=== PATIENT | female | born 1980 | race Caucasian/White ===

== ENCOUNTER 2018-01-21 16:55 | Inpatient (IN) | payer OTHER ==
[2018-01-21] MEDS ORDERED: SODIUM CHLORIDE 0.9% 1,000 ML IV STA (17:24)
[2018-01-21] MEDS ORDERED: SODIUM CHLORIDE 0.9% 500 ML 500 ML IV STA (17:24)
[2018-01-21] MEDS ORDERED: KETOROLAC 30 MG/ML 1 ML VIAL IVP STA (17:25)
[2018-01-21] MEDS ORDERED: IPRATROPIUM-ALBUTEROL 3 ML NEB INHALATION STA (17:26)
--- NOTE | 2018-01-21 17:28 | ED ---
Fever HPI - General Chief Complaint: Fever Stated Complaint: Fever Time Seen by Provider: 01/21/18 17:07 Source: patient Mode of arrival: ambulatory Limitations: no limitations - History of Present Illness Initial Comments: Patient is a 37-year-old female presenting for fever. Patient states that she is otherwise healthy but started having a cough on and went to an urgent care today where she was given antibiotics and steroids and told that she had the pneumonia. He also told her to come to the hospital for fever continued to be elevated. She admits to some shortness of breath and some difficulty breathing but no chest pain. She states that her temperature is also been as high as 103F. She denies any abdominal pain, nausea/vomiting/ diarrhea, urinary symptoms or recent travels. - Related Data Allergies Allergy/AdvReac Type Severity Reaction Status Date / Time No Known Allergies Allergy Verified 01/21/18 17:00 Review of Systems ROS Statement: Those systems with pertinent positive or pertinent negative responses have been documented in the HPI. Constitutional: Positive for chills, fatigue and fever. HENT: Negative for congestion. Respiratory: Negative for chest tightness, and wheezing. Positive for cough and shortness of breath Cardiovascular: Negative for chest pain and palpitations. Gastrointestinal: Negative for abdominal pain. Negative for abdominal distention , diarrhea, nausea and vomiting. Genitourinary: Negative for dysuria. Musculoskeletal: Negative for back pain, neck pain and neck stiffness. Skin: Negative for color change. Neurological: Negative for dizziness, speech difficulty, weakness and light- headedness. Psychiatric/Behavioral: Negative for agitation and confusion. Negative for anxiety ROS Other: All systems not noted in ROS Statement are negative. Past Medical History Past Medical History: Pneumonia Additional Past Medical History / Comment(s): TB History of Any Multi-Drug Resistant Organisms: None Reported Past Surgical History: Appendectomy, Section Past Psychological History: No Psychological Hx Reported Smoking Status: Never smoker Past Alcohol Use History: None Reported Past Drug Use History: None Reported General Exam - General Exam Comments Initial Comments: Constitutional: Pt is oriented to person, place, and time. Pt appears well- developed and well-nourished. No distress. HENT: Head: Normocephalic and atraumatic. Eyes: EOM are normal. Neck: Normal range of motion. Neck supple. Cardiovascular: Tachycardia present, regular rhythm, S1 normal, S2 normal and normal heart sounds. Exam reveals no gallop and no friction rub. No murmur heard. Pulmonary/Chest: Effort normal and breath sounds normal. No tachypnea and no bradypnea. No respiratory distress. No wheezes or rales noted. Abdominal: Soft. Bowel sounds are normal. Pt exhibits no shifting dullness, no distension, no pulsatile liver, no fluid wave, no abdominal bruit and no ascites. There is no tenderness. There is no rigidity, no rebound, no guarding, no tenderness at McBurney's point and negative Joiner's sign. Musculoskeletal: Normal range of motion. Neurological: Pt is alert and oriented to person, place, and time. No cranial nerve deficit. Skin: Skin is warm and dry. No rash noted. Pt is not diaphoretic. No erythema. No pallor. Psychiatric: Pt has a normal mood and affect. Pt behavior is normal. Thought content normal. Limitations: no limitations Course Vital Signs 01/21/18 01/21/18 01/21/18 16:57 18:01 18:06 Temperature 100.3 F H Pulse Rate 131 H 117 H 111 H Respiratory 24 Rate Blood Pressure 134/80 O2 Sat by Pulse 95 Oximetry Medical Decision Making - Medical Decision Making Laboratory studies showed that there is no significant leukocytosis or elevations and lactic acid. Chest x-ray showed left lower lobe infiltrate. Patient was to be discharged home considering laboratory studies, however, after 2 L normal saline she continued to remain tachycardic around 120. Because of this, it was felt that patient should remain in observation for continued hydration and monitoring as well as treatment with azithromycin and Rocephin which is ordered here in the emergency department. Pulmonary embolism was considered but it is felt to be unlikely as the patient's history and exam are consistent with infectious etiology. Explained all labs and diagnostic test results and that we will admit patient to hospital. Pt is agreeable to plan and case has been discussed with Dr. Sanchez and they agree to accept the pt. - Lab Data Result diagrams: 01/21/18 17:28 01/21/18 17:28 Lab Results 01/21/18 01/21/18 01/21/18 Range/Units 17:28 17:28 17:28 WBC 10.0 (3.8-10.6) k/uL RBC 4.56 (3.80-5.40) m/uL Hgb 12.4 (11.4-16.0) gm/dL Hct 37.2 (34.0-46.0) % MCV 81.6 (80.0-100.0) fL MCH 27.2 (25.0-35.0) pg MCHC 33.3 (31.0-37.0) g/dL RDW 14.3 (11.5-15.5) % Plt Count 274 (150-450) k/uL Neutrophils % 88 % Lymphocytes % 6 % Monocytes % 4 % Eosinophils % 1 % Basophils % 0 % Neutrophils # 8.8 H (1.3-7.7) k/uL Lymphocytes # 0.6 L (1.0-4.8) k/uL Monocytes # 0.4 (0-1.0) k/uL Eosinophils # 0.1 (0-0.7) k/uL Basophils # 0.0 (0-0.2) k/uL Sodium 136 L (137-145) mmol/L Potassium 4.0 (3.5-5.1) mmol/L Chloride 104 (98-107) mmol/L Carbon Dioxide 21 L (22-30) mmol/L Anion Gap 11 mmol/L BUN 8 (7-17) mg/dL Creatinine 0.54 (0.52-1.04) mg/dL Est GFR (CKD-EPI)AfAm >90 (>60 ml/min/1.73 sqM) Est GFR (CKD-EPI)NonAf >90 (>60 ml/min/1.73 sqM) Glucose 114 H (74-99) mg/dL Plasma Lactic Acid Claude (0.7-2.0) mmol/L Calcium 9.4 (8.4-10.2) mg/dL Total Bilirubin 0.5 (0.2-1.3) mg/dL AST 26 (14-36) U/L ALT 32 (9-52) U/L Alkaline Phosphatase 82 (38-126) U/L Total Protein 7.3 (6.3-8.2) g/dL Albumin 4.0 (3.5-5.0) g/dL Urine Color Urine Appearance (Clear) Urine pH (5.0-8.0) Ur Specific [place] (1.001-1.035) Urine Protein (Negative) Urine Glucose (UA) (Negative) Urine Ketones (Negative) Urine Blood (Negative) Urine Nitrite (Negative) Urine Bilirubin (Negative) Urine Urobilinogen (<2.0) mg/dL Ur Leukocyte Esterase (Negative) Urine RBC (0-5) /hpf Ur Squamous Epith Cells (0-4) /hpf Calcium Oxalate Crystal (None) /hpf Urine HCG, Qual (Not Detectd) Influenza Type A RNA Not Detected (Not Detectd) Influenza Type B (PCR) Not Detected (Not Detectd) 01/21/18 01/21/18 01/21/18 Range/Units 17:28 17:28 17:28 WBC (3.8-10.6) k/uL RBC (3.80-5.40) m/uL Hgb (11.4-16.0) gm/dL Hct (34.0-46.0) % MCV (80.0-100.0) fL MCH (25.0-35.0) pg MCHC (31.0-37.0) g/dL RDW (11.5-15.5) % Plt Count (150-450) k/uL Neutrophils % % Lymphocytes % % Monocytes % % Eosinophils % % Basophils % % Neutrophils # (1.3-7.7) k/uL Lymphocytes # (1.0-4.8) k/uL Monocytes # (0-1.0) k/uL Eosinophils # (0-0.7) k/uL Basophils # (0-0.2) k/uL Sodium (137-145) mmol/L Potassium (3.5-5.1) mmol/L Chloride (98-107) mmol/L Carbon Dioxide (22-30) mmol/L Anion Gap mmol/L BUN (7-17) mg/dL Creatinine (0.52-1.04) mg/dL Est GFR (CKD-EPI)AfAm (>60 ml/min/1.73 sqM) Est GFR (CKD-EPI)NonAf (>60 ml/min/1.73 sqM) Glucose (74-99) mg/dL Plasma Lactic Acid Claude 0.8 (0.7-2.0) mmol/L Calcium (8.4-10.2) mg/dL Total Bilirubin (0.2-1.3) mg/dL AST (14-36) U/L ALT (9-52) U/L Alkaline Phosphatase (38-126) U/L Total Protein (6.3-8.2) g/dL Albumin (3.5-5.0) g/dL Urine Color Colorless Urine Appearance Clear (Clear) Urine pH 5.5 (5.0-8.0) Ur Specific [place] 1.002 (1.001-1.035) Urine Protein Negative (Negative) Urine Glucose (UA) Negative (Negative) Urine Ketones 1+ H (Negative) Urine Blood Trace H (Negative) Urine Nitrite Negative (Negative) Urine Bilirubin Negative (Negative) Urine Urobilinogen <2.0 (<2.0) mg/dL Ur Leukocyte Esterase Negative (Negative) Urine RBC 1 (0-5) /hpf Ur Squamous Epith Cells <1 (0-4) /hpf Calcium Oxalate Crystal Rare H (None) /hpf Urine HCG, Qual Not Detected (Not Detectd) Influenza Type A RNA (Not Detectd) Influenza Type B (PCR) (Not Detectd) Disposition Clinical Impression: Community acquired pneumonia Disposition: ADMITTED IP TO THIS [facility] Condition: Fair Referrals: Simin Lane MD [Primary Care Provider] - 1-2 days Decision to Admit Reason: Admit from EC Decision Date: 01/21/18 Decision Time: 19:36
[2018-01-21 17:45] LABS: Basophils % (A) 0 %; Eosinophils # (A) 0.1 k/uL (0-0.7); Eosinophils % (A) 1 %; HCT 37.2 % (34.0-46.0); HGB 12.4 gm/dL (11.4-16.0); Lymphocytes # (A) 0.6 k/uL (1.0-4.8); Lymphocytes % (A) 6 %; MCH 27.2 pg (25.0-35.0); MCHC 33.3 g/dL (31.0-37.0); MCV 81.6 fL (80.0-100.0); Mean Platelet Volume 7.3; Monocytes # (A) 0.4 k/uL (0-1.0); Monocytes % (A) 4 %; Neutrophils # (A) 8.8 k/uL (1.3-7.7); Neutrophils % (A) 88 %; Platelet Count 274 k/uL (150-450); RBC 4.56 m/uL (3.80-5.40); RDW 14.3 % (11.5-15.5)
[2018-01-21 17:56] LABS: ALT 32 U/L (9-52); AST 26 U/L (14-36); Alkaline Phosphatase 82 U/L (38-126); Anion Gap 11 mmol/L; Blood Urea Nitrogen 8 mg/dL (7-17); Calcium 9.4 mg/dL (8.4-10.2); Carbon Dioxide 21 mmol/L (22-30); Chloride 104 mmol/L (98-107); Glucose 114 mg/dL (74-99); Sodium 136 mmol/L (137-145); Total Bilirubin 0.5 mg/dL (0.2-1.3); Total Protein 7.3 g/dL (6.3-8.2)
[2018-01-21 18:20] LABS: Appearance,Urine Clear (Clear); Bilirubin,Urine Negative (Negative); Blood,Urine Trace (Negative); Calcium Oxalate Crystals,Urine Rare /hpf; Color,Urine Colorless; Glucose,Urine (UA) Negative (Negative); Ketones,Urine 1+ (Negative); Leukocyte Esterase,Urine Negative (Negative); Nitrite,Urine Negative (Negative); PH, Urine 5.5 (5.0-8.0); Protein,Urine Negative (Negative); RBC,Urine 1 /hpf (0-5); Specific Gravity,Urine 1.002 (1.001-1.035); Squamous Epithelial Cell,Urine <1 /hpf (0-4); Urobilinogen,Urine <2.0 mg/dL (<2.0)
--- NOTE | 2018-01-21 18:53 | XR ---
EXAMINATION TYPE: XR chest 2V DATE OF EXAM: 01/21/2018 COMPARISON: NONE HISTORY: Fever, reported history of recent pneumonia TECHNIQUE: Frontal and lateral views of the chest are obtained. FINDINGS: Airspace disease present in left lower lung. The left hemidiaphragm is not well-visualized but may represent small left pleural effusion. Right lung is clear. No pneumothorax. The cardiomedia stinal silhouette is within normal limits. Osseous structures are intact. IMPRESSION: 1. Left lower lung airspace disease which may represent pneumonia. Serial radiographs are recommended to ensure resolution. 2. Left hemidiaphragm is not well visualized but may represent small left pleural effusion.
[2018-01-21] MEDS ORDERED: AZITHROMYCIN 500 MG in SODIUM CHLORIDE 0.9% 250 ML IVPB STA (19:24)
[2018-01-21] MEDS ORDERED: NALOXONE 0.4 MG/ML 1 ML VIAL IV PRN (19:31)
[2018-01-21] MEDS ORDERED: LACTATED RINGERS 1,000 ML IV STA (19:31)
[2018-01-21 21:05] VITALS: BMI 34.3
[2018-01-21] MEDS: IBUPROFEN 400 MG TAB PO PRN (21:15)
--- NOTE | 2018-01-21 21:29 | P.HPIM ---
History of Present Illness H&P Date: 01/21/18 Chief Complaint: Cough and fever of 3 days' duration 37-year-old female with no significant past medical history except for depression. Patient presented to the hospital with a 3 day history of coughing productive of greenish brownish sputum, associated with pleuritic chest pain centrally, and fevers of 103. She's been taking Tylenol and Motrin with not much benefit. Patient is reporting difficulties with taking deep breaths today due to pleuritic chest pain. So she went to an urgent care where she was given a shot of steroid and antibiotic and was told to go to the ER if fevers persist. Patient denies any recent traveling or any sick contacts except for her kids who all got runny nose. Patient denies any recent hospitalization or being bedridden or any recent surgeries or any diagnosis of active cancer. Patient denies any calf muscle tenderness. Patient denies any nausea vomiting denies any abdominal pain changes in her hearing or vision denies any dizziness or lightheadedness denies any palpitations. Eyes any focal neurologic deficits. Patient denies taking any recent antibiotics except for UTI she took Macrobid over a month ago In the ED patient was found tachycardic chest x-ray showed left lower lobe lung disease, the initial plan was to discharge her with oral antibiotic however due to persistent tachycardia she was admitted for observation 24 hours Review of Systems Pertinent positives as noted in HPI. All other systems were reviewed and are negative Past Medical History Past Medical History: Pneumonia Additional Past Medical History / Comment(s): TB at age [age], migraines History of Any Multi-Drug Resistant Organisms: None Reported Past Surgical History: Appendectomy, Section Past Psychological History: Anxiety, Depression Additional Psychological History / Comment(s): pts states medication she takes keeps symtoms manageable. Smoking Status: Never smoker Past Alcohol Use History: None Reported Past Drug Use History: None Reported - Past Family History Mother Family Medical History: No Reported History Father Family Medical History: No Reported History Additional Family Medical History / Comment(s): migraines Medications and Allergies Allergies Allergy/AdvReac Type Severity Reaction Status Date / Time No Known Allergies Allergy Verified 01/21/18 17:00 Physical Exam Vitals: Vital Signs Temp Pulse Pulse Resp BP BP Pulse Ox 01/21/18 20:48 99.3 F 119 H 20 120/65 98 01/21/18 20:17 98.7 F 118 H 20 118/70 98 01/21/18 19:51 98.9 F 112 H 18 116/65 94 L 01/21/18 19:00 112 H 20 118/87 95 01/21/18 18:06 111 H 01/21/18 18:01 117 H 01/21/18 18:00 118 H 18 138/78 98 01/21/18 17:32 124 H 20 131/69 92 L 01/21/18 16:57 100.3 F H 131 H 24 134/80 95 Intake and Output 01/21/18 01/21/18 01/21/18 06:59 14:59 22:59 Other: Weight 90.718 kg Constitutional: No acute distress, conversant, pleasant Eyes: Anicteric sclerae, moist conjunctiva, no lid-lag Pupils equal round reactive to light ENMT: NC/AT Oropharynx clear, no erythema, or exudates Neck: Supple, FROM, no masses, or JVD No carotid bruits No thyromegaly Lungs: Decreased breath sounds at lung bases left worse than right, no wheezing rhonchi or rales otherwise Clear to percussion Normal respiratory effort, no accessory muscle use Cardiovascular: Heart tachycardia, regular, No murmurs, gallops, or rubs No peripheral edema Abdominal: Soft Nontender, no guarding, rebound or rigidity Abdomen moving with respiration Normoactive bowel sounds No hepatomegaly, No splenomegaly No palpable mass No abdominal wall hernia noted Skin: Normal temperature, tone, texture, turgor No induration No subcutaneous nodules No rash, lesions No ulcers Extremities: No digital cyanosis No clubbing Pedal pulses intact and symmetrical Radial pulses intact and symmetrical No calf tenderness Psychiatric: Alert and oriented to person, place and time Appropriate affect fair judgment Neuro Muscles Strength 5/5 in all 4 extremities Sensation to light touch grossly present throughout Cranial nerves II-XII grossly intact No focal sensory deficits Lymphatics: no palpable cervical or supraclavicular , or inguinal lymph nodes Results CBC & Chem 7: 01/21/18 17:28 01/21/18 17:28 Labs: Abnormal Lab Results - Last 24 Hours (Table) 01/21/18 01/21/18 01/21/18 Range/Units 17:28 17:28 17:28 Neutrophils # 8.8 H (1.3-7.7) k/uL Lymphocytes # 0.6 L (1.0-4.8) k/uL Sodium 136 L (137-145) mmol/L Carbon Dioxide 21 L (22-30) mmol/L Glucose 114 H (74-99) mg/dL Urine Ketones 1+ H (Negative) Urine Blood Trace H (Negative) Calcium Oxalate Crystal Rare H (None) /hpf Thrombosis Risk Factor Assmnt - Choose All That Apply Each Factor Represents 1 point: Obesity (BMI >25) Other Risk Factors: No Other congenital or acquired thrombophilia - If yes, enter type in comment: No Thrombosis Risk Factor Assessment Total Risk Factor Score: 1 Thrombosis Risk Factor Assessment Level: Low Risk Assessment and Plan Assessment: 37 year old female with no significant past medical history, admitted under observation for monitoring of persistent tachycardia. patient was diagnosed with CAP in the ED and started on ABx. She presented with 3 day history of coughing, fever, and pleuritic chest pain, CXR showed LLL disease. Plan: community acquired pneumonia rocephine and azithromycin IVF hydration symptomatic control of coughing and pleuritic chest pain Tachycardia check EKG, most likely sinus tachy as physiologic response to pneumonia further workup and recommendations pending revision of EKG currently asymptomatic IVF hydration History of depression, resume home medications Cymbalta, Xanax, Lamictal Obesity counseled regarding weight loss and life style modification DVT ppx heparin sc Surrogate decision-maker: Patient Toribio CODE STATUS:*Full code Discussed with: Patient, ER, RN Anticipated discharge: <[address]: *Home A total of 55 minutes was spent on the care of this complex patient more than 50 % of the time was spent in counseling and care coordination.
[2018-01-21] MEDS: SODIUM CHLORIDE 0.9% 1,000 ML IV SCH (22:09)
[2018-01-21] MEDS: HEPARIN SODIUM,PORCINE 5,000 UNIT/ML 1 ML VIAL SQ SCH (22:12)
[2018-01-22] MEDS: ACETAMINOPHEN TAB 325 MG TAB PO PRN ×4 (02:01→22:30)
[2018-01-22] MEDS: IBUPROFEN 400 MG TAB PO PRN ×3 (03:18→18:27)
[2018-01-22] MEDS: SODIUM CHLORIDE 0.9% 1,000 ML IV SCH ×2 (07:14→14:30)
[2018-01-22] MEDS: lamoTRIgine 100 MG TAB PO SCH (08:47)
[2018-01-22] MEDS: HEPARIN SODIUM,PORCINE 5,000 UNIT/ML 1 ML VIAL SQ SCH ×3 (08:47→23:59)
[2018-01-22] MEDS: DULoxetine HCL 20 MG CAPSULE.DR PO SCH (08:48)
[2018-01-22] MEDS ORDERED: DULoxetine HCL 20 MG CAPSULE.DR PO SCH (09:00)
[2018-01-22] MEDS: ALPRAZolam 0.5 MG TAB PO PRN ×2 (10:59→21:30)
[2018-01-22] MEDS: MORPHINE SULFATE 2 MG/ML SYRINGE IVP PRN ×3 (14:20→22:31)
--- NOTE | 2018-01-22 14:27 | P.PN ---
Subjective Progress Note Date: 01/22/18 Principal diagnosis: Pneumonia Patient was seen and examined. No acute events overnight. Patient continues to complain of cough productive of green sputum. Patient complains of intense pleuritic chest pain as well with her cough. She also complains of bitemporal headache, pounding in nature. Requesting pain relief. Also complains of fever and chills. Objective - Vital Signs Vital signs: Vital Signs Temp 101.2 F H 01/22/18 11:00 Pulse 124 H 01/22/18 11:00 Resp 20 01/22/18 11:00 BP 138/73 01/22/18 11:00 Pulse Ox 100 01/22/18 11:00 Intake & Output 01/21/18 01/22/18 01/22/18 18:59 06:59 18:59 Weight 90.718 kg 90.718 kg Other: # Voids 1 2 - Exam General: [non toxic], [no distress], [appears at stated age] Derm: [warm], [dry] Head: [atraumatic], [normocephalic], [symmetric] Eyes: [EOMI], [no lid lag], [anicteric sclera] Mouth: [no lip lesion], [mucus membranes moist] Cardiovascular: [S1S2 reg], [tachycardic], [positive DP pulse bilateral] Lungs: [CTA bilateral], [no rhonchi, no rales] , [no accessory muscle use] Abdominal: [soft], [ nontender to palpation], [no guarding], [no appreciable organomegaly] Ext: [no gross muscle atrophy], [no edema], [no contractures] Neuro: [no focal neuro deficits] Psych: [Alert], [oriented], [appropriate affect] - Labs CBC & Chem 7: 01/21/18 17:28 01/21/18 17:28 Labs: Abnormal Lab Results - Last 24 Hours (Table) 01/21/18 01/21/18 01/21/18 Range/Units 17:28 17:28 17:28 Neutrophils # 8.8 H (1.3-7.7) k/uL Lymphocytes # 0.6 L (1.0-4.8) k/uL Sodium 136 L (137-145) mmol/L Carbon Dioxide 21 L (22-30) mmol/L Glucose 114 H (74-99) mg/dL Urine Ketones 1+ H (Negative) Urine Blood Trace H (Negative) Calcium Oxalate Crystal Rare H (None) /hpf Assessment and Plan Assessment: Assessment and Plan 1. Pneumonia: Community acquired. Patient is febrile with Tmax 102.7 (2AM) and 101.2 (11AM) with no leukocytosis. Patient is tachypnic and tachycardic. Influenza negative. CXR shows PNA in the LLL. Continue Ceftriaxone 1g IV QD and Zithromax 250 mg PO QD. Will add Mucinex 1200 mg PO BID. DuoNeb Continue NS at 140 cc/h. O2 per NC to maintain O2 sat > 92%. FU BCx and Sputum Cx 2. Chest pain: Pleuritic likely related to PNA with no concerns for ACS. Pain management with Tylenol, Ibuprofen and Morphine IV PRN. 3. Tachycardia: HR in the 120s. Sinus on physical exam. Likely related to pain and pneumonia. Continue IVF. Continue adequate pain management. Continue IV Abx. FU EKG 4. Depression: Stable. Continue Xanax 0.5 mg PO BID PRN for anxiety, Cymbalta 60 mg PO QD, Lamictal 100 mg PO QD. 5. DVT Prophylaxis: Heparin 5000 units SUBCUT TID. Patient is not feeling well at this time with a constellation of symptoms (LOPEZ, pleuritic chest pain, cough and congestion). Patient continues to be febrile Tmax 101.2 around 11 AM. Continue present management. Likely discharge in 1-2 days.
[2018-01-22] MEDS: BENZONATATE 100 MG CAP PO SCH ×2 (15:09→21:33)
[2018-01-22] MEDS ORDERED: AZITHROMYCIN 250 MG TAB PO SCH (19:00)
[2018-01-22] MEDS: guaiFENesin 600 MG TABLET.ER PO SCH (21:33)
[2018-01-23] MEDS: IBUPROFEN 400 MG TAB PO PRN ×2 (01:33→07:54)
[2018-01-23] MEDS: SODIUM CHLORIDE 0.9% 1,000 ML IV SCH (01:35)
[2018-01-23] MEDS: MORPHINE SULFATE 2 MG/ML SYRINGE IVP PRN ×2 (02:29→06:28)
[2018-01-23] MEDS: ACETAMINOPHEN TAB 325 MG TAB PO PRN (04:37)
[2018-01-23] MEDS: BENZONATATE 100 MG CAP PO SCH (07:50)
[2018-01-23] MEDS: HEPARIN SODIUM,PORCINE 5,000 UNIT/ML 1 ML VIAL SQ SCH (07:50)
[2018-01-23] MEDS: guaiFENesin 600 MG TABLET.ER PO SCH (07:50)
[2018-01-23] MEDS: lamoTRIgine 100 MG TAB PO SCH (07:50)
[2018-01-23] MEDS: DULoxetine HCL 20 MG CAPSULE.DR PO SCH (07:51)
[2018-01-23 07:59] VITALS: BP 113/73; PULSE 86; RESP 18; TEMP 97.9
[2018-01-23 08:40] LABS: Basophils % (A) 0 %; Eosinophils % (A) 0 %; HGB 10.7 gm/dL (11.4-16.0); Lymphocytes # (A) 0.7 k/uL (1.0-4.8); Lymphocytes % (A) 13 %; MCH 27.2 pg (25.0-35.0); MCHC 32.5 g/dL (31.0-37.0); MCV 83.8 fL (80.0-100.0); Mean Platelet Volume 7.8; Monocytes # (A) 0.2 k/uL (0-1.0); Monocytes % (A) 3 %; Neutrophils # (A) 4.3 k/uL (1.3-7.7); Neutrophils % (A) 82 %; Platelet Count 230 k/uL (150-450); RBC 3.94 m/uL (3.80-5.40); RDW 14.5 % (11.5-15.5); WBC 5.3 k/uL (3.8-10.6)
--- NOTE | 2018-01-23 09:19 | P.DS ---
Providers Date of admission: 01/21/18 19:37 Expected date of discharge: 01/23/18 Attending physician: Sahil Sanchez MD Primary care physician: Simin Blair Domingo - Discharge Diagnosis(es) (1) Pleuritic chest pain Current Visit: Yes Status: Acute (2) Tachycardia Current Visit: Yes Status: Acute (3) Depression Current Visit: Yes Status: Acute (4) Community acquired pneumonia Current Visit: Yes Status: Acute Hospital Course: 37-year-old female with no significant past medical history except for depression. Patient presented to the hospital with a 3 day history of coughing productive of greenish brownish sputum, associated with pleuritic chest pain centrally, and fevers of 103F. With regard to her presenting symptoms, chest x-ray showed no pneumonia in the left lower lobe. Influenza was negative. Patient had a T-max of 102.7 on admission without a leukocytosis. She was started on ceftriaxone IV and azithromycin orally. She was given Mucinex and DuoNeb as needed. She was given oxygen by nasal cannula to maintain an oxygen saturation greater than 92% . Her antibiotics were the de-escalated to Levaquin by mouth to complete a total of 7 days of antibiotics. Her chest pain was thought to be pleuritic, likely related to pneumonia with no concerns for acute coronary syndrome. Her pain was managed with Tylenol, ibuprofen and morphine as needed. Patient was initially tachycardic into the 120s. She is sinus on EKG. This is thought to be related to her pain and the pneumonia. She is continued on normal saline at 140 mL an hour. Her pulse improved to 90 at the time of discharge. Patient was seen and examined prior to discharge. She reports great improvement in her breathing from the previous day. She continues to cough, productive of clear sputum. She denies any fever or chills at this time. She denies any chest pain, palpitations. She is looking for to going home. General: [non toxic], [no distress], [appears at stated age] Derm: [warm], [dry] Head: [atraumatic], [normocephalic], [symmetric] Eyes: [EOMI], [no lid lag], [anicteric sclera] Mouth: [no lip lesion], [mucus membranes moist] Cardiovascular: [S1S2 reg], [tachycardic], [positive DP pulse bilateral] Lungs: [CTA bilateral], [no rhonchi, no rales] , [no accessory muscle use] Abdominal: [soft], [ nontender to palpation], [no guarding], [no appreciable organomegaly] Ext: [no gross muscle atrophy], [no edema], [no contractures] Neuro: [no focal neuro deficits] Psych: [Alert], [oriented], [appropriate affect] Assessment and Plan 1. Pneumonia: Community acquired. Patient is febrile with Tmax 102.7 (2AM) and 101.2 (11AM) with no leukocytosis. Patient is tachypnic and tachycardic. Influenza negative. CXR shows PNA in the LLL. DC Ceftriaxone 1g IV QD and Zithromax 250 mg PO QD and start Levaquin PO for a total of 7 days. Will add Mucinex 1200 mg PO BID. DuoNeb Continue NS at 140 cc/h. O2 per NC to maintain O2 sat > 92%. BCx prelim negative after 24H. FU BCx (final) and Sputum Cx 2. Chest pain: Pleuritic likely related to PNA with no concerns for ACS. Pain management with Tylenol, Ibuprofen and Morphine IV PRN. 3. Tachycardia: HR in the 120s, improved to 90 on discharge. EKG shows sinus tachycardia. Likely related to pain and pneumonia. Continue IVF. Continue adequate pain management. Continue IV Abx. 4. Depression: Stable. Continue Xanax 0.5 mg PO BID PRN for anxiety, Cymbalta 60 mg PO QD, Lamictal 100 mg PO QD. 5. DVT Prophylaxis: Heparin 5000 units SUBCUT TID. Patient advised to follow-up with her primary care provider within 1-2 days of discharge. Patient was advised to take all medications as recommended. This complex discharge took greater than 30 minutes. Pertinent Studies: CXR Patient Condition at Discharge: Stable Plan - Discharge Summary New Discharge Prescriptions: New Acetaminophen Tab [Tylenol] 650 mg PO Q6HR PRN tab PRN Reason: Mild Pain Or Fever > 100.5 Benzonatate [Tessalon Perles] 100 mg PO TID #20 cap Ketorolac [Toradol] 10 mg PO Q6HR #20 tab Levofloxacin [Levaquin] 750 mg PO DAILY 5 Days #3 tab Continue DULoxetine HCL [Cymbalta] 60 mg PO DAILY lamoTRIgine [LaMICtal] 100 mg PO DAILY ALPRAZolam [Xanax] 0.5 mg PO BID PRN PRN Reason: Anxiety Discharge Medication List ALPRAZolam [Xanax] 0.5 mg PO BID PRN 01/21/18 [History] DULoxetine HCL [Cymbalta] 60 mg PO DAILY 01/21/18 [History] lamoTRIgine [LaMICtal] 100 mg PO DAILY 01/21/18 [History] Acetaminophen Tab [Tylenol] 650 mg PO Q6HR PRN tab 01/23/18 [Rx] Benzonatate [Tessalon Perles] 100 mg PO TID #20 cap 01/23/18 [Rx] Ketorolac [Toradol] 10 mg PO Q6HR #20 tab 01/23/18 [Rx] Levofloxacin [Levaquin] 750 mg PO DAILY 5 Days #3 tab 01/23/18 [Rx] Follow up Appointment(s)/Referral(s): Simin Lane MD [Primary Care Provider] - 1-2 days Activity/Diet/Wound Care/Special Instructions: Diet; Regular Please follow-up with your primary care provider within 1-2 days discharge. Please take all medications as advised. Please come to the ED for worsening shortness of breath, fevers greater than 101 , chest pain not controlled with medications. Discharge Disposition: HOME SELF-CARE
== END 2018-01-23 10:14 | disposition home or self-care (01) | DRG 195 ==
LOC: EC 16:55 → 6PED 19:37
PROVIDERS: ADMIT Internal Medicine; ATTEND Internal Medicine
DX: J18.9 Pneumonia, unspecified organism (principal); F32.9 Major depressive disorder, single episode, unspecified; F41.9 Anxiety disorder, unspecified; E66.9 Obesity, unspecified; Z68.34 Body mass index [BMI] 34.0-34.9, adult; R00.0 Tachycardia, unspecified; Z71.3 Dietary counseling and surveillance
CPT/HCPCS: 36415; 71046; 80053; 81001; 81025; 83605; 85025; 87040; 87070; 87205; 87502; 93005; 94640; 96361; 96365; 96375; 99284

== ENCOUNTER → 2018-08-11 | Outpatient (CLI) | payer OTHER ==
--- NOTE | 2018-08-11 12:22 | MR ---
EXAMINATION TYPE: MR knee LT wo con DATE OF EXAM: 08/11/2018 COMPARISON: None HISTORY: Chronic left knee pain TECHNIQUE: Multiplanar, multisequence imaging of the left knee is performed without IV contrast. FINDINGS: MEDIAL MENISCUS: There is some linear increased signal in the posterior horn the medial meniscus with in its substance without clear. Communication with the articular surface LATERAL MENISCUS: Increased signal within the posterior horn extends towards the root however there i s not a clear extension to the articular surface to suggest tear CRUCIATE LIGAMENTS: Anterior cruciate ligament fibers are intact however there is fluid signal presen t along the ligament suggesting possible partial tear or strain. COLLATERAL LIGAMENTS: The medial collateral ligament and lateral collateral ligament complex are inta ct and unremarkable. EXTENSOR MECHANISM: Visualized quadriceps and patellar tendons are intact. EFFUSION: No significant suprapatellar joint effusion. POPLITEAL CYST: No popliteal/plasencia cyst. TRICOMPARTMENT SPACES: Maintained CARTILAGE: Intact, question some grade 1 to grade II chondromalacia posterior patella BONE MARROW SIGNAL: Normal, some minimal red marrow reconversion suspected distal diaphysis of the fe mur OTHER: No additional significant abnormality is appreciated. IMPRESSION: There may be a partial tear of the anterior cruciate ligament. Signal changes within the menisci with out definite evidence of tear. 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 Additional findings above.
== END | disposition home or self-care (01) ==
LOC: RADMRIMAIN 10:27
PROVIDERS: ATTEND Family Medicine
DX: M25.562 Pain in left knee (principal); G89.29 Other chronic pain

== ENCOUNTER → 2019-02-15 | Outpatient (CLI) | payer OTHER ==
[2019-02-15 08:57] LABS: Basophils % (A) 1 %; Eosinophils # (A) 0.2 k/uL (0-0.7); Eosinophils % (A) 2 %; HCT 39.7 % (34.0-46.0); HGB 13.2 gm/dL (11.4-16.0); Lymphocytes # (A) 1.9 k/uL (1.0-4.8); Lymphocytes % (A) 25 %; MCH 28.2 pg (25.0-35.0); MCHC 33.3 g/dL (31.0-37.0); MCV 84.7 fL (80.0-100.0); Mean Platelet Volume 6.3; Monocytes # (A) 0.5 k/uL (0-1.0); Monocytes % (A) 7 %; Neutrophils # (A) 4.9 k/uL (1.3-7.7); Neutrophils % (A) 64 %; Platelet Count 369 k/uL (150-450); RBC 4.69 m/uL (3.80-5.40); RDW 13.5 % (11.5-15.5); WBC 7.7 k/uL (3.8-10.6)
[2019-02-15 16:36] LABS: ALT 18 U/L (8-44); AST 21 U/L (13-35); African American GFR (CKD) 127.4 (60.0-200.0); Albumin/Globulin Ratio 1.96 (1.60-3.17); Alkaline Phosphatase 88 U/L (41-126); BUN/Creat Ratio 22.86 Ratio (12.00-20.00); Bilirubin, Conjugated <0.20 mg/dL (0.20-0.40); C Reactive Protein 0.6 mg/dL (0.0-0.8); Calcium 9.3 mg/dL (8.7-10.3); Carbon Dioxide 24.1 mmol/L (21.6-31.8); Chloride 106 mmol/L (96-109); Cholesterol 203 mg/dL (0-200); Globulin 2.3 g/dL (1.6-3.3); Glucose 96 mg/dL (70-110); LDL Cholesterol,Calculated 121.2 mg/dL (0.0-131.0); Non-African American GFR(CKD) 109.9 (60.0-200.0); Potassium 4.7 mmol/L (3.5-5.5); Sodium 138 mmol/L (135-145); Total Bilirubin 0.2 mg/dL (0.3-1.2); Total Protein 6.8 g/dL (6.2-8.2)
[2019-02-15 17:02] LABS: Folate, Serum 14.5 ng/mL
[2019-02-15 18:05] LABS: Hemoglobin A1C 5.4 % (4.0-6.0)
== END | disposition home or self-care (01) ==
LOC: LABWHC1 08:32
PROVIDERS: ATTEND Clinical Nurse Specialist Psychiatric/Mental Health
DX: F41.1 Generalized anxiety disorder (principal)
CPT/HCPCS: 36415; 80053; 80061; 82248; 82306; 82746; 83036; 84439; 84443; 84479; 85025; 86140

== ENCOUNTER → 2019-12-17 | Outpatient (CLI) | payer OTHER | END | disposition home or self-care (01) | LOC: LABWHC1 08:10 | PROVIDERS: ATTEND Family Medicine | DX: E22.1 Hyperprolactinemia (principal) | CPT/HCPCS: 36415; 84146 ==

== ENCOUNTER 2020-06-23 15:34 | Observation (INO) | payer OTHER ==
[2020-06-23 16:57] LABS: Basophils # (A) 0.1 k/uL (0-0.2); Basophils % (A) 1 %; Eosinophils # (A) 0.2 k/uL (0-0.7); Eosinophils % (A) 2 %; Lymphocytes # (A) 2.5 k/uL (1.0-4.8); Lymphocytes % (A) 30 %; MCH 27.6 pg (25.0-35.0); MCHC 34.1 g/dL (31.0-37.0); Mean Platelet Volume 7.2; Monocytes # (A) 0.5 k/uL (0-1.0); Monocytes % (A) 6 %; Neutrophils # (A) 4.9 k/uL (1.3-7.7); Neutrophils % (A) 60 %; Platelet Count 410 k/uL (150-450); RBC 4.69 m/uL (3.80-5.40); RDW 13.6 % (11.5-15.5); WBC 8.3 k/uL (3.8-10.6)
[2020-06-23 17:13] LABS: ALT 19 U/L (4-34); AST 26 U/L (14-36); African American GFR (CKD) >90 (>60 ml/min/1.73 sqM); Albumin 4.5 g/dL (3.5-5.0); Alkaline Phosphatase 92 U/L (38-126); Anion Gap 7 mmol/L; Blood Urea Nitrogen 10 mg/dL (7-17); Calcium 9.6 mg/dL (8.4-10.2); Carbon Dioxide 27 mmol/L (22-30); Chloride 103 mmol/L (98-107); Glucose 88 mg/dL (74-99); Magnesium 2.2 mg/dL (1.6-2.3); Non-African American GFR(CKD) >90 (>60 ml/min/1.73 sqM); Potassium 4.3 mmol/L (3.5-5.1); Sodium 137 mmol/L (137-145); Total Bilirubin 0.4 mg/dL (0.2-1.3); Total Protein 7.6 g/dL (6.3-8.2)
[2020-06-23 17:16] LABS: INR 0.9 (<1.2); Partial Thromboplastin Time 25.1 sec (22.0-30.0); Prothrombin Time 9.7 sec (9.0-12.0)
--- NOTE | 2020-06-23 17:16 | XR ---
EXAMINATION TYPE: XR chest 2V DATE OF EXAM: 06/23/2020 COMPARISON: 01/21/2018 HISTORY: Chest pain TECHNIQUE: 2 views FINDINGS: Heart and mediastinum are normal. Lungs are clear. Diaphragm is normal. Bony thorax is inta ct. Pulmonary vascularity is normal. IMPRESSION: Normal chest. There is clearing of the left lower lobe pneumonia compared to old exam.
--- NOTE | 2020-06-23 19:59 | ED ---
General Adult HPI - General Chief complaint: Chest Pain Stated complaint: SOB/chest pain/hand numbness Time Seen by Provider: 06/23/20 19:15 Source: patient, RN notes reviewed Mode of arrival: ambulatory Limitations: no limitations - History of Present Illness Initial comments: Patient is a 39-year-old female that presents emergency room complaining of chest tightness and dyspnea. She reported that she does have a history of anxiety and other issues but denied any cardiac history or respiratory issues. She notes that her life is more stressful home and with work. She notes that she does follow-up with a psychiatrist in the next follow-up is and may sometime. She was in no apparent distress or pain while sitting up in bed during exam and interview. She stated the chest pain was no longer present and that it was more just the tightness on breathing. She denied any headache nausea vomiting diarrhea constipation fever fatigue chills. - Related Data Home Medications Medication Instructions Recorded Confirmed DULoxetine HCL [Cymbalta] 60 mg PO DAILY 01/21/18 06/23/20 DULoxetine HCL [Cymbalta] 30 mg PO DIRECTED 06/23/20 06/23/20 Dextroamphetamine/Amphetamine 20 mg PO BID PRN 06/23/20 06/23/20 [Adderall] Levothyroxine Sodium 25 mcg PO DAILY 06/23/20 06/23/20 Pyridoxine HCl (Vitamin B6) 100 mg PO DAILY 06/23/20 06/23/20 [Vitamin B-6] buPROPion XL [Wellbutrin Xl] 300 mg PO DAILY 06/23/20 06/23/20 hydrOXYzine pamoate [hydrOXYzine 25 - 50 mg PO HS PRN 06/23/20 06/23/20 PAMOATE] lamoTRIgine [LaMICtal] 200 mg PO DAILY 06/23/20 06/23/20 Allergies Allergy/AdvReac Type Severity Reaction Status Date / Time No Known Allergies Allergy Verified 06/23/20 20:22 Review of Systems ROS Statement: Those systems with pertinent positive or pertinent negative responses have been documented in the HPI. ROS Other: All systems not noted in ROS Statement are negative. Past Medical History Past Medical History: Pneumonia Additional Past Medical History / Comment(s): TB at age [age], migraines History of Any Multi-Drug Resistant Organisms: None Reported Past Surgical History: Appendectomy, Section Past Psychological History: Anxiety, Depression Smoking Status: Never smoker Past Alcohol Use History: None Reported Past Drug Use History: None Reported - Past Family History Mother Family Medical History: No Reported History Father Family Medical History: No Reported History Additional Family Medical History / Comment(s): migraines General Exam Limitations: no limitations General appearance: alert, in no apparent distress Head exam: Present: atraumatic, normocephalic, normal inspection Eye exam: Present: normal appearance, PERRL, EOMI. Absent: scleral icterus, conjunctival injection, periorbital swelling ENT exam: Present: normal exam, mucous membranes moist Neck exam: Present: normal inspection. Absent: tenderness, meningismus, lymphadenopathy Respiratory exam: Present: normal lung sounds bilaterally. Absent: respiratory distress, wheezes, rales, rhonchi, stridor Cardiovascular Exam: Present: regular rate, normal rhythm, normal heart sounds. Absent: systolic murmur, diastolic murmur, rubs, gallop, clicks GI/Abdominal exam: Present: soft, normal bowel sounds. Absent: distended, ten derness, guarding, rebound, rigid Extremities exam: Present: normal inspection, full ROM, normal capillary refill. Absent: tenderness, pedal edema, joint swelling, calf tenderness Back exam: Present: normal inspection Neurological exam: Present: alert, oriented X3, CN II-XII intact Psychiatric exam: Present: normal affect, normal mood Skin exam: Present: warm, dry, intact, normal color. 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 EKG, satellite project site monitor, chest x-ray ordered. Labs unremarkable. Chest x-ray no acute process. EKG was within normal limits. Case discussed with Dr. Puckett, and wants to admit patient to observation. Dr. layton will take the admission. - Lab Data Result diagrams: 06/23/20 16:35 06/23/20 16:35 Lab Results 06/23/20 06/23/20 06/23/20 Range/Units 16:22 16:35 16:35 WBC 8.3 (3.8-10.6) k/uL RBC 4.69 (3.80-5.40) m/uL Hgb 13.0 (11.4-16.0) gm/dL Hct 38.0 (34.0-46.0) % MCV 81.0 (80.0-100.0) fL MCH 27.6 (25.0-35.0) pg MCHC 34.1 (31.0-37.0) g/dL RDW 13.6 (11.5-15.5) % Plt Count 410 (150-450) k/uL MPV 7.2 Neutrophils % 60 % Lymphocytes % 30 % Monocytes % 6 % Eosinophils % 2 % Basophils % 1 % Neutrophils # 4.9 (1.3-7.7) k/uL Lymphocytes # 2.5 (1.0-4.8) k/uL Monocytes # 0.5 (0-1.0) k/uL Eosinophils # 0.2 (0-0.7) k/uL Basophils # 0.1 (0-0.2) k/uL PT 9.7 (9.0-12.0) sec INR 0.9 (<1.2) APTT 25.1 (22.0-30.0) sec Sodium (137-145) mmol/L Potassium (3.5-5.1) mmol/L Chloride (98-107) mmol/L Carbon Dioxide (22-30) mmol/L Anion Gap mmol/L BUN (7-17) mg/dL Creatinine (0.52-1.04) mg/dL Est GFR (CKD-EPI)AfAm (>60 ml/min/1.73 sqM) Est GFR (CKD-EPI)NonAf (>60 ml/min/1.73 sqM) Glucose (74-99) mg/dL Calcium (8.4-10.2) mg/dL Magnesium (1.6-2.3) mg/dL Total Bilirubin (0.2-1.3) mg/dL AST (14-36) U/L ALT (4-34) U/L Alkaline Phosphatase (38-126) U/L Troponin I (0.000-0.034) ng/mL Total Protein (6.3-8.2) g/dL Albumin (3.5-5.0) g/dL Coronavirus (PCR) Not Detected (Not Detectd) 06/23/20 06/23/20 Range/Units 16:35 16:35 WBC (3.8-10.6) k/uL RBC (3.80-5.40) m/uL Hgb (11.4-16.0) gm/dL Hct (34.0-46.0) % MCV (80.0-100.0) fL MCH (25.0-35.0) pg MCHC (31.0-37.0) g/dL RDW (11.5-15.5) % Plt Count (150-450) k/uL MPV Neutrophils % % Lymphocytes % % Monocytes % % Eosinophils % % Basophils % % Neutrophils # (1.3-7.7) k/uL Lymphocytes # (1.0-4.8) k/uL Monocytes # (0-1.0) k/uL Eosinophils # (0-0.7) k/uL Basophils # (0-0.2) k/uL PT (9.0-12.0) sec INR (<1.2) APTT (22.0-30.0) sec Sodium 137 (137-145) mmol/L Potassium 4.3 (3.5-5.1) mmol/L Chloride 103 (98-107) mmol/L Carbon Dioxide 27 (22-30) mmol/L Anion Gap 7 mmol/L BUN 10 (7-17) mg/dL Creatinine 0.61 (0.52-1.04) mg/dL Est GFR (CKD-EPI)AfAm >90 (>60 ml/min/1.73 sqM) Est GFR (CKD-EPI)NonAf >90 (>60 ml/min/1.73 sqM) Glucose 88 (74-99) mg/dL Calcium 9.6 (8.4-10.2) mg/dL Magnesium 2.2 (1.6-2.3) mg/dL Total Bilirubin 0.4 (0.2-1.3) mg/dL AST 26 (14-36) U/L ALT 19 (4-34) U/L Alkaline Phosphatase 92 (38-126) U/L Troponin I <0.012 (0.000-0.034) ng/mL Total Protein 7.6 (6.3-8.2) g/dL Albumin 4.5 (3.5-5.0) g/dL Coronavirus (PCR) (Not Detectd) - Radiology Data Radiology results: report reviewed, image reviewed Chest x-ray: Normal chest. There is clearing of the left lower lobe pneumonia, compared to old exam Disposition Clinical Impression: Chest pain Disposition: ADMITTED IP TO THIS [facility] Condition: Stable Instructions (If sedation given, give patient instructions): Chest Pain (ED) Is patient prescribed a controlled substance at d/c from ED?: No Referrals: Simin Lane MD [Primary Care Provider] - 1-2 days Time of Disposition: 20:46
[2020-06-23] MEDS ORDERED: NALOXONE 0.4 MG/ML 1 ML VIAL IV PRN (20:44)
[2020-06-23] MEDS ORDERED: SODIUM CHLORIDE 0.9% 1,000 ML IV SCH (20:45)
[2020-06-24] MEDS ORDERED: ASPIRIN 325 MG TAB PO SCH (06:00)
[2020-06-24] MEDS ORDERED: LEVOTHYROXINE 25 MCG TAB PO SCH (06:30)
[2020-06-24 07:41] VITALS: BP 108/68; PULSE 68; RESP 16; TEMP 97.7
[2020-06-24] MEDS ORDERED: buPROPion XL 300 MG TAB.ER.24H PO SCH (09:00)
[2020-06-24] MEDS ORDERED: HEPARIN SODIUM,PORCINE/PF 5,000 UNIT/0.5 ML SYRINGE SQ SCH (09:00)
[2020-06-24] MEDS ORDERED: DULoxetine HCL 60 MG CAPSULE.DR PO SCH (09:00)
[2020-06-24] MEDS ORDERED: lamoTRIgine 100 MG TAB PO SCH (09:00)
[2020-06-24] MEDS ORDERED: FAMOTIDINE 20 MG/2 ML VIAL IV SCH (09:00)
--- NOTE | 2020-06-24 10:05 | P.CRDCN ---
History of Present Illness History of present illness: HISTORY OF PRESENTING ILLNESS This is a pleasant 39-year-old female past medical history significant for anxiety and depression. 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 We have been asked to see in consultation for chest pain. She states yesterday afternoon while she was at home not doing anything particularly strenuous she had an episode of chest discomfort in the midsternal region described as a heavy tight sensation that radiated to the left precordial region and down the left arm. She states her left arm felt heavy and numb. Her chest pain has been intermittent since that time. At times it is sharp. She also feels as though she can't take a deep breath. The discomfort in breathing is not related to exertion or activity it typically occurs at rest. She denies associated palpitations, nausea, vomiting or diaphoresis. DIAGNOSTICS EKG reveals sinus mechanism [address] or T wave abnormalities noted. Telemetry tracings indicate sinus mechanism. Chest xray negative for an acute cardiopulmonary process. Laboratory reviewed, troponins negative 2 and all other lab work is unremarkable. She takes no daily cardiac medications. REVIEW OF SYSTEMS At the time of my exam: CONSTITUTIONAL: Denies fever or chills. CARDIOVASCULAR: Denies chest pain, shortness of breath, orthopnea, PND or p alpitations. RESPIRATORY: Denies cough. GASTROINTESTINAL: Denies abdominal pain, diarrhea, constipation, nausea or vomiting. MUSCULOSKELETAL: Complains of of left arm numbness. NEUROLOGIC: Denies numbness, tingling, headacbe or weakness. ENDOCRINE: Denies fatigue, weight change, polydipsia or polyurina. GENITOURINARY: Denies burning, hematuria or urgency with micturation. HEMATOLOGIC: Denies history of anemia or bleeding. PHYSICAL EXAMINATION Blood pressure 108/68 heart rate 68 afebrile and maintaining oxygen saturation on room air. CONSTITUTIONAL: No apparent distress. HEENT: Head is normocephalic. Pupils are equal, round. Sclerae anicteric. Mucous membranes of the mouth are moist. No JVD. No carotid bruit. CHEST EXAMINATION: Lungs are clear to auscultation. No chest wall tenderness is noted on palpation or with deep breathing. HEART EXAMINATION: Regular rate and rhythm. S1, S2 heard. No murmurs, gallops or rub. ABDOMEN: Soft, nontender. Positive bowel sounds. EXTREMITIES: 2+ peripheral pulses, no lower extremity edema and no calf tenderness. NEUROLOGIC EXAMINATION: Patient is awake, alert and oriented x3. ASSESSMENT Chest pain Anxiety Depression PLAN An acute coronary event has been ruled out. Obtain stress echocardiogram to assess for stress-induced cardiac ischemia. If stress test is normal she may be discharged from a cardiac perspective. Thank you kindly for this consultation. Nurse Practitioner note has been reviewed, I agree with a documented findings and plan of care. Patient was seen and examined. Past Medical History Past Medical History: Pneumonia Additional Past Medical History / Comment(s): TB at age [age], migraines History of Any Multi-Drug Resistant Organisms: None Reported Past Surgical History: Appendectomy, Section Past Anesthesia/Blood Transfusion Reactions: No Reported Reaction Past Psychological History: Anxiety, Depression Additional Psychological History / Comment(s): pts states medication she takes keeps symtoms manageable. Smoking Status: Never smoker Past Alcohol Use History: None Reported Past Drug Use History: None Reported - Past Family History Mother Family Medical History: No Reported History Father Family Medical History: No Reported History Additional Family Medical History / Comment(s): migraines Medications and Allergies Home Medications Medication Instructions Recorded Confirmed Type DULoxetine HCL [Cymbalta] 60 mg PO DAILY 01/21/18 06/23/20 History DULoxetine HCL [Cymbalta] 30 mg PO DIRECTED 06/23/20 06/23/20 History Dextroamphetamine/Amphetamine 20 mg PO BID PRN 06/23/20 06/23/20 History [Adderall] Levothyroxine Sodium 25 mcg PO DAILY 06/23/20 06/23/20 History Pyridoxine HCl (Vitamin B6) 100 mg PO DAILY 06/23/20 06/23/20 History [Vitamin B-6] buPROPion XL [Wellbutrin Xl] 300 mg PO DAILY 06/23/20 06/23/20 History hydrOXYzine pamoate [hydrOXYzine 25 - 50 mg PO HS PRN 06/23/20 06/23/20 History PAMOATE] lamoTRIgine [LaMICtal] 200 mg PO DAILY 06/23/20 06/23/20 History Allergies Allergy/AdvReac Type Severity Reaction Status Date / Time No Known Allergies Allergy Verified 06/23/20 20:22 Physical Exam Vitals: Vital Signs Temp Pulse Pulse Pulse Resp BP BP 06/24/20 07:00 97.7 F 68 16 108/68 06/24/20 02:00 97.9 F 83 17 116/62 06/23/20 22:21 98.3 F 85 16 120/75 06/23/20 21:43 83 18 119/80 06/23/20 19:24 87 88 18 130/80 06/23/20 16:14 97.4 F L 91 18 119/74 Pulse Ox 06/24/20 07:00 99 06/24/20 02:00 97 06/23/20 22:21 100 06/23/20 21:43 99 06/23/20 19:24 98 06/23/20 16:14 100 Intake and Output 06/23/20 06/24/20 06/24/20 22:59 06:59 14:59 Intake Total 400 Balance 400 Intake: Intake, IV Titration 400 Amount Sodium Chloride 0.9% 1, 400 000 ml @ 75 mls/hr IV . [id number] [facility] Rx#:[id number] Other: Voiding Method Toilet Indwelling Catheter # Voids 2 Weight 81.647 kg Results 06/23/20 16:35 06/23/20 16:35 Cardiac Enzymes 06/23/20 06/23/20 06/24/20 Range/Units 16:35 16:35 08:24 AST 26 (14-36) U/L Troponin I <0.012 <0.012 (0.000-0.034) ng/mL Coagulation 06/23/20 Range/Units 16:35 PT 9.7 (9.0-12.0) sec APTT 25.1 (22.0-30.0) sec CBC 06/23/20 Range/Units 16:35 WBC 8.3 (3.8-10.6) k/uL RBC 4.69 (3.80-5.40) m/uL Hgb 13.0 (11.4-16.0) gm/dL Hct 38.0 (34.0-46.0) % Plt Count 410 (150-450) k/uL Comprehensive Metabolic Panel 06/23/20 Range/Units 16:35 Sodium 137 (137-145) mmol/L Potassium 4.3 (3.5-5.1) mmol/L Chloride 103 (98-107) mmol/L Carbon Dioxide 27 (22-30) mmol/L BUN 10 (7-17) mg/dL Creatinine 0.61 (0.52-1.04) mg/dL Glucose 88 (74-99) mg/dL Calcium 9.6 (8.4-10.2) mg/dL AST 26 (14-36) U/L ALT 19 (4-34) U/L Alkaline Phosphatase 92 (38-126) U/L Total Protein 7.6 (6.3-8.2) g/dL Albumin 4.5 (3.5-5.0) g/dL Current Medications Generic Name Dose Route Start Last Admin Trade Name Freq PRN Reason Stop Dose Admin Bupropion HCl 300 mg 06/24/20 09:00 06/24/20 09:03 Bupropion Xl 300 Mg Tab.Er.24h PO 300 mg DAILY TERRA Administration Duloxetine HCl 60 mg 06/24/20 09:00 06/24/20 09:03 Duloxetine Hcl 60 Mg Capsule.Dr PO 60 mg DAILY TERRA Administration Famotidine 20 mg 06/24/20 09:00 06/24/20 09:03 Famotidine 20 Mg/2 Ml Vial IV 20 mg Q12HR TERRA Administration Heparin Sodium (Porcine) 5,000 unit 06/24/20 09:00 06/24/20 09:03 Heparin Sodium,Porcine/Pf 5,000 Unit/0.5 Ml Syringe SQ 5,000 unit Q12HR TERRA Administration Lamotrigine 200 mg 06/24/20 09:00 06/24/20 09:03 Lamotrigine 100 Mg Tab PO 200 mg DAILY TERRA Administration Levothyroxine Sodium 25 mcg 06/24/20 06:30 06/24/20 05:08 Levothyroxine 25 Mcg Tab PO 25 mcg DAILY@0630 TERRA Administration Naloxone HCl 0.2 mg 06/23/20 20:44 Naloxone 0.4 Mg/Ml 1 Ml Vial IV Q2M PRN Opioid Reversal Intake and Output 06/23/20 06/24/20 06/24/20 22:59 06:59 14:59 Intake Total 400 Balance 400 Intake: Intake, IV Titration 400 Amount Sodium Chloride 0.9% 1, 400 000 ml @ 75 mls/hr IV . [id number] [facility] Rx#:[id number] Other: Voiding Method Toilet Indwelling Catheter # Voids 2 Weight 81.647 kg 06/23/20 16:35 06/23/20 16:35
[2020-06-24] MEDS ORDERED: DULoxetine HCL 30 MG CAPSULE.DR PO SCH (10:45)
--- NOTE | 2020-06-24 12:35 | ECHOS ---
STRESS ECHOCARDIOGRAM LUMASON: N/A Vial INDICATIONS: Chest pain. MEDICATIONS: BASELINE HEART RATE: 74 BASELINE BLOOD PRESSURE: 120/67 MAXIMUM HEART RATE: 159 MAXIMUM BLOOD PRESSURE: 149/103 85% MPHR: 154 100% MPHR: 181 METS: 11 MAXIMUM STAGE REACHED: 3 TOTAL EXERCISE TIME 10 minutes CLINICAL INFORMATION: Baseline EKG shows sinus rhythm, normal axis, normal intervals. Patient exercised on Colin protocol for a total of 10 minutes, achieving 11 METs, 88% of predicted maximal heart rate without chest pain or diagnostic ST-segment depression. Baseline echo shows normal left ventricular size, wall motion and systolic function. Postexercise, there is normal hyperdynamic response of all segments of myocardium noted. CONCLUSIONS: 1. Excellent exercise tolerance. 2. Negative stress test by EKG criteria. 3. Negative stress echo. MMODL / IJN: [id number] /
--- NOTE | 2020-06-24 13:24 | P.HPIM ---
History of Present Illness Patient was in the 39-year-old pleasant female came in with the complaints of chest pressure-like sensation in the retrosternal area tightness squeezing like sensation pain of around 4/10 in severity radiating to the left thumb and the left arm felt numb and heavy. Patient just pain is intermittent on and off last for a few minutes, nonpleuritic but because of the pain she can't take a deep breath denied any association with food. Nonexertional. Denied any associated palpitations nausea vomiting and diaphoresis. Chest x-ray didn't did not show any significant abnormality EKG did not show any acute ST-T wave changes tropon ins were negative. Patient underwent stress test which was negative. Patient may have esophageal spasm since her pain is not that bad no further intervention is being done at this time if she continues to have similar pain may need further evaluation by gastroenterology for esophageal spasm Review of Systems REVIEW OF SYSTEMS: CONSTITUTIONAL: No fever, no malaise, no fatigue. HEENT: No recent visual problems or hearing problems. Denied any sore throat. CARDIOVASCULAR: No orthopnea, PND, no palpitations, no syncope. PULMONARY: No shortness of breath, no cough, no hemoptysis. GASTROINTESTINAL: No diarrhea, no nausea, no vomiting, no abdominal pain. NEUROLOGICAL: No headaches, no weakness, no numbness. HEMATOLOGICAL: Denies any bleeding or petechiae. GENITOURINARY: Denies any burning micturition, frequency, or urgency. MUSCULOSKELETAL/RHEUMATOLOGICAL: Denies any joint pain, swelling, or any muscle pain. ENDOCRINE: Denies any polyuria or polydipsia. The rest of the 14-point review of systems is negative. Past Medical History Past Medical History: Pneumonia Additional Past Medical History / Comment(s): TB at age [age], migraines History of Any Multi-Drug Resistant Organisms: None Reported Past Surgical History: Appendectomy, Section Past Anesthesia/Blood Transfusion Reactions: No Reported Reaction Past Psychological History: Anxiety, Depression Additional Psychological History / Comment(s): pts states medication she takes keeps symtoms manageable. Smoking Status: Never smoker Past Alcohol Use History: None Reported Past Drug Use History: None Reported - Past Family History Mother Family Medical History: No Reported History Father Family Medical History: No Reported History Additional Family Medical History / Comment(s): migraines Medications and Allergies Home Medications Medication Instructions Recorded Confirmed Type DULoxetine HCL [Cymbalta] 60 mg PO DAILY 01/21/18 06/23/20 History DULoxetine HCL [Cymbalta] 30 mg PO DIRECTED 06/23/20 06/23/20 History Dextroamphetamine/Amphetamine 20 mg PO BID PRN 06/23/20 06/23/20 History [Adderall] Levothyroxine Sodium 25 mcg PO DAILY 06/23/20 06/23/20 History Pyridoxine HCl (Vitamin B6) 100 mg PO DAILY 06/23/20 06/23/20 History [Vitamin B-6] buPROPion XL [Wellbutrin Xl] 300 mg PO DAILY 06/23/20 06/23/20 History hydrOXYzine pamoate [hydrOXYzine 25 - 50 mg PO HS PRN 06/23/20 06/23/20 History PAMOATE] lamoTRIgine [LaMICtal] 200 mg PO DAILY 06/23/20 06/23/20 History Allergies Allergy/AdvReac Type Severity Reaction Status Date / Time No Known Allergies Allergy Verified 06/23/20 20:22 Physical Exam Vitals: Vital Signs Temp Pulse Pulse Pulse Resp BP BP 06/24/20 07:00 97.7 F 68 16 108/68 06/24/20 02:00 97.9 F 83 17 116/62 06/23/20 22:21 98.3 F 85 16 120/75 06/23/20 21:43 83 18 119/80 06/23/20 19:24 87 88 18 130/80 06/23/20 16:14 97.4 F L 91 18 119/74 Pulse Ox 06/24/20 07:00 99 06/24/20 02:00 97 06/23/20 22:21 100 06/23/20 21:43 99 06/23/20 19:24 98 06/23/20 16:14 100 Intake and Output 06/23/20 06/24/20 06/24/20 22:59 06:59 14:59 Intake Total 400 Balance 400 Intake: Intake, IV Titration 400 Amount Sodium Chloride 0.9% 1, 400 000 ml @ 75 mls/hr IV . [id number] [facility] Rx#:[id number] Other: Voiding Method Toilet Indwelling Catheter # Voids 2 Weight 81.647 kg 81.65 kg PHYSICAL EXAMINATION: GENERAL: The patient is alert and oriented x3, not in any acute distress. Well developed, well nourished. HEENT: Pupils are round and equally reacting to light. EOMI. No scleral icterus. No conjunctival pallor. Normocephalic, atraumatic. No pharyngeal erythema. No thyromegaly. CARDIOVASCULAR: S1 and S2 present. No murmurs, rubs, or gallops. PULMONARY: Chest is clear to auscultation, no wheezing or crackles. ABDOMEN: Soft, nontender, nondistended, normoactive bowel sounds. No palpable organomegaly. MUSCULOSKELETAL: No joint swelling or deformity. EXTREMITIES: No cyanosis, clubbing, or pedal edema. NEUROLOGICAL: Gross neurological examination did not reveal any focal deficits. SKIN: No rashes. Results CBC & Chem 7: 06/23/20 16:35 06/23/20 16:35 Thrombosis Risk Factor Assmnt - Choose All That Apply Any of the Below Risk Factors Present?: Yes Each Factor Represents 1 point: Obesity (BMI >25) Other Risk Factors: No Other congenital or acquired thrombophilia - If yes, enter type in comment: No Thrombosis Risk Factor Assessment Total Risk Factor Score: 1 Thrombosis Risk Factor Assessment Level: Low Risk Assessment and Plan Plan: -Chest pain: Ruled out acute current symptoms after which patient underwent stress test which was negative and patient is cleared for discharge from cardiology perspective patient underwent a stress echocardiogram. -Anxiety disorder -Depression -Possibility of the esophageal spasm which is contributing to her retrosternal chest pain will need further evaluation if patient can use to have symptoms is being discharged today to follow with PCP in about a week
--- NOTE | 2020-06-24 13:25 | P.DS ---
Providers Date of admission: 06/23/20 21:12 Attending physician: Alex Pate MD Consults: 06/23/20 23:04 Consult Physician Urgent Consulting Provider: Sukh Hanson Consult Reason/Comments: chest pain Do you want consulting provider notified?: Yes, Notify in am Placement Type Exists?: Yes Primary care physician: Simin [facility] Course: Refer to my HPI for further details Patient Condition at Discharge: Stable Plan - Discharge Summary Discharge Rx Participant: No New Discharge Prescriptions: Continue DULoxetine HCL [Cymbalta] 60 mg PO DAILY DULoxetine HCL [Cymbalta] 30 mg PO DIRECTED lamoTRIgine [LaMICtal] 200 mg PO DAILY Levothyroxine Sodium 25 mcg PO DAILY Dextroamphetamine/Amphetamine [Adderall] 20 mg PO BID PRN PRN Reason: ADHD Pyridoxine HCl (Vitamin B6) [Vitamin B-6] 100 mg PO DAILY hydrOXYzine pamoate [hydrOXYzine PAMOATE] 25 - 50 mg PO HS PRN PRN Reason: Anxiety buPROPion XL [Wellbutrin XL] 300 mg PO DAILY Discharge Medication List DULoxetine HCL [Cymbalta] 60 mg PO DAILY 01/21/18 [History] DULoxetine HCL [Cymbalta] 30 mg PO DIRECTED 06/23/20 [History] Dextroamphetamine/Amphetamine [Adderall] 20 mg PO BID PRN 06/23/20 [History] Levothyroxine Sodium 25 mcg PO DAILY 06/23/20 [History] Pyridoxine HCl (Vitamin B6) [Vitamin B-6] 100 mg PO DAILY 06/23/20 [History] buPROPion XL [Wellbutrin XL] 300 mg PO DAILY 06/23/20 [History] hydrOXYzine pamoate [hydrOXYzine PAMOATE] 25 - 50 mg PO HS PRN 06/23/20 [Histo ry] lamoTRIgine [LaMICtal] 200 mg PO DAILY 06/23/20 [History] Follow up Appointment(s)/Referral(s): Simin Lane MD [Primary Care Provider] - 1-2 days Sukh Hanson MD [STAFF PHYSICIAN] - 2 Weeks (office will call patient to schedule ) Patient Instructions/Handouts: Chest Pain (ED)
[2020-06-24 19:23] LABS: Chol/HDL Ratio 4.07
== END 2020-06-24 11:35 ==
LOC: EC 15:34 → 6NMEDSUR 21:12
PROVIDERS: ADMIT Internal Medicine; ATTEND Internal Medicine
DX: R07.89 Other chest pain (principal); R07.2 Precordial pain; R20.0 Anesthesia of skin; R06.00 Dyspnea, unspecified; R06.02 Shortness of breath; F32.9 Major depressive disorder, single episode, unspecified; F41.9 Anxiety disorder, unspecified; F90.9 Attention-deficit hyperactivity disorder, unspecified type; E66.9 Obesity, unspecified; Z68.25 Body mass index [BMI] 25.0-25.9, adult; Z79.890 Hormone replacement therapy; Z79.899 Other long term (current) drug therapy; Z90.89 Acquired absence of other organs; Z87.01 Personal history of pneumonia (recurrent); Z98.891 History of uterine scar from previous surgery; Z86.11 Personal history of tuberculosis; Z86.69 Personal history of other diseases of the nervous system and sense organs; Z63.8 Other specified problems related to primary support group; Z82.0 Family history of epilepsy and other diseases of the nervous system; Z20.822 Contact with and (suspected) exposure to COVID-19
CPT/HCPCS: 96361 ×3; 96372; 96374; 99285; 36415; 93005; 93351; 80061; 80053; 83735; 84484 ×2; 85025; 85610; 85730; 84703; 87635; 71046; G0378 ×2; J1644

== ENCOUNTER 2021-05-27 16:28 | Emergency (ER) | payer OTHER ==
[2021-05-27 16:56] VITALS: BP 123/86; PULSE 98; RESP 18; TEMP 100.3
--- NOTE | 2021-05-27 18:27 | ED ---
Headache HPI - General Chief Complaint: Headache Stated Complaint: Headache Time Seen by Provider: 05/27/21 18:08 Source: RN notes reviewed Mode of arrival: ambulatory Limitations: no limitations - History of Present Illness Initial Comments: This is a pleasant 40-year-old female with a history of migraine headaches. She states that she has had a headache 2-3 times per day for the past 3 weeks. She states it seems to be behind her right eye and is quite severe at times. It lasts for several minutes up to 1-2 hours. Patient has no symptoms at this time. Patient denying any headache. No ear pain. No sore throat. No blurred vision. No double vision. No skin rashes or lesions. No vertigo. No imbalance. No neck pain. No chest pain or shortness of breath. No nausea or vomiting. No fever or chills. No difficulties with balance urination. No numbness or tingling. No focal weakness. MD Complaint: headache - Related Data Home Medications Medication Instructions Recorded Confirmed DULoxetine HCL [Cymbalta] 60 mg PO DAILY 01/21/18 06/23/20 DULoxetine HCL [Cymbalta] 30 mg PO DIRECTED 06/23/20 06/23/20 Dextroamphetamine/Amphetamine 20 mg PO BID PRN 06/23/20 06/23/20 [Adderall] Levothyroxine Sodium 25 mcg PO DAILY 06/23/20 06/23/20 Pyridoxine HCl (Vitamin B6) 100 mg PO DAILY 06/23/20 06/23/20 [Vitamin B-6] buPROPion XL [Wellbutrin XL] 300 mg PO DAILY 06/23/20 06/23/20 hydrOXYzine pamoate [hydrOXYzine 25 - 50 mg PO HS PRN 06/23/20 06/23/20 PAMOATE] lamoTRIgine [LaMICtal] 200 mg PO DAILY 06/23/20 06/23/20 Previous Rx's Medication Instructions Recorded Naproxen [Naprosyn] 375 mg PO Q12HR PRN #20 tablet 05/27/21 Allergies Allergy/AdvReac Type Severity Reaction Status Date / Time No Known Allergies Allergy Verified 05/27/21 16:54 Review of Systems ROS Statement: Those systems with pertinent positive or pertinent negative responses have been documented in the HPI. ROS Other: All systems not noted in ROS Statement are negative. Past Medical History Past Medical History: Pneumonia Additional Past Medical History / Comment(s): TB at age [age], migraines History of Any Multi-Drug Resistant Organisms: None Reported Past Surgical History: Appendectomy, Section Past Anesthesia/Blood Transfusion Reactions: No Reported Reaction Past Psychological History: Anxiety, Depression Smoking Status: Never smoker Past Alcohol Use History: None Reported Past Drug Use History: None Reported - Past Family History Mother Family Medical History: No Reported History Father Family Medical History: No Reported History Additional Family Medical History / Comment(s): migraines General Exam - General Exam Comments Initial Comments: Well-developed, well-nourished 40-year-old female in no acute distress. Patient does not appear to be ill or toxic. Limitations: no limitations General appearance: alert, in no apparent distress Head exam: Present: atraumatic, normocephalic, normal inspection Eye exam: Present: normal appearance, PERRL, EOMI. Absent: scleral icterus, conjunctival injection, nystagmus, periorbital swelling, periorbital tenderness Pupils: Present: normal accommodation. Absent: unequal ENT exam: Present: normal exam, normal oropharynx, mucous membranes moist, TM's normal bilaterally, normal external ear exam. Absent: mucous membranes dry Neck exam: Present: normal inspection, full ROM, other (No meningismus). Absent: tenderness, meningismus, lymphadenopathy, thyromegaly Respiratory exam: Present: normal lung sounds bilaterally. Absent: respiratory distress, wheezes, rales, rhonchi, stridor, accessory muscle use, decreased breath sounds, prolonged expiratory Cardiovascular Exam: Present: regular rate, normal rhythm, normal heart sounds. Absent: systolic murmur, diastolic murmur, rubs, gallop, clicks GI/Abdominal exam: Present: soft, normal bowel sounds. Absent: distended, tenderness, guarding, rebound, rigid Extremities exam: Present: normal inspection, full ROM, normal capillary refill. Absent: tenderness, pedal edema, joint swelling, calf tenderness Back exam: Present: normal inspection Neurological exam: Present: alert, oriented X3, CN II-XII intact, normal gait. Absent: altered, abnormal gait, reflexes normal Psychiatric exam: Present: normal affect, normal mood. Absent: anxious, flat affect Skin exam: Present: warm, dry, intact, normal color. Absent: rash, cyanosis, erythema, urticaria, vesicles, petechiae, pallor, mottled, abrasion Course Vital Signs 05/27/21 16:54 Temperature 100.3 F H Pulse Rate 98 Respiratory 18 Rate Blood Pressure 123/86 O2 Sat by Pulse 99 Oximetry Medical Decision Making - Medical Decision Making This was a healthy-appearing 40-year-old female with no symptomology at the time I saw her. She was in no distress. She's had a headache which comes and goes, lasting up to 2 hours, located behind her right eye. This is been present daily for the last 2 or 3 weeks. Patient actually asymptomatic at this time. She has not tried any treatment. She does have a history of migraine headaches. No neurologic impairment otherwise. We did discuss the usefulness of imaging to include CT scanning. We discussed pros are scones. Patient is asymptomatic at this time. Patient's presentation consistent with probable cluster headaches. We discussed radiation exposure. CT was deferred through shared decision-making. Patient will return immediately if any symptoms worsen. Patient was given follow-up instructions for neurology. She knows to call tomorrow morning. I did order COVID-19 test. Patient is nearly febrile with a temp of 100.3. However examination is benign otherwise. She has had no cough. No sore throat. No earache. No abdominal pain. No problems with urination or bowel movements. The case was discussed in detail with ED attending physician. Presentation, findings, treatment plan discussed in detail. Patient was told to return to the ER for any signs or symptoms worsen. Told to return immediately if any other problems arise. All questions answered. Treatment plan discussed. Patient in agreement Every effort has been made to ensure accuracy of this dictation. However, due to the limitations of electronic medical records and dictation devices, errors in charting still occur. Disposition Clinical Impression: Cluster headache, episodic Disposition: HOME SELF-CARE Condition: Good Instructions (If sedation given, give patient instructions): Cluster Headache (ED) Additional Instructions: Take the Naprosyn twice daily as directed. You can also add an [id number] acetaminophen for additional pain control. Call tomorrow morning to make a follow-up appointment with the neurologist. You should also make an appointment with your regular doctor. Follow-up with your regular physician as directed. Return to the ER immediately if any symptoms worsen, new symptoms arise, or any other problems develop. Your temperature was a high end of normal but did not actually qualify as an official fever. COVID-19 testing was done and is pending. You can call back for the results. Is patient prescribed a controlled substance at d/c from ED?: No Referrals: Simin Lane MD [Primary Care Provider] - 1-2 days Jeri Rolon MD [REFERRING] - 1-2 days Time of Disposition: 18:28
== END 2021-05-27 18:43 | disposition home or self-care (01) ==
LOC: EC 16:28
DX: G44.009 Cluster headache syndrome, unspecified, not intractable (principal); Z20.822 Contact with and (suspected) exposure to COVID-19
CPT/HCPCS: 87635; 99283

== ENCOUNTER → 2021-09-04 | Outpatient (CLI) | payer OTHER ==
[2021-09-04 14:26] LABS: Basophils # (A) 0.05 X 10*3/uL (0.00-0.10); Basophils % (A) 0.6 %; Eosinophils # (A) 0.14 X 10*3/uL (0.04-0.35); Eosinophils % (A) 1.8 %; HCT 38.4 % (37.2-46.3); Immature Grans, Automated 0.5 %; Lymphocytes # (A) 2.14 X 10*3/uL (0.90-5.00); Lymphocytes % (A) 27.7 %; MCH 26.5 pg (27.0-32.0); MCHC 31.3 g/dL (32.0-37.0); MCV 84.8 fL (80.0-97.0); Mean Platelet Volume 10.5 fL (9.5-12.2); Monocytes # (A) 0.66 X 10*3/uL (0.20-1.00); Monocytes % (A) 8.5 %; NRBC Per 100 WBC 0 /100 WBCS (0.0-0.0); Neutrophils % (A) 60.9 %; Platelet Count 411 X 10*3/uL (140-440); RBC 4.53 X 10*6/uL (4.10-5.20); WBC 7.73 X 10*3/uL (4.50-10.00)
[2021-09-04 14:57] LABS: African American GFR (CKD) 128.9 (60.0-200.0); Albumin 4.3 g/dL (3.8-4.9); Albumin/Globulin Ratio 1.56 (1.60-3.17); Anion Gap 10.5 mmol/L (10.00-18.00); BUN/Creat Ratio 15.46 Ratio (12.00-20.00); Calcium 9.2 mg/dL (8.7-10.3); Carbon Dioxide 25.8 mmol/L (20.0-27.5); Globulin 2.7 g/dL (1.6-3.3); Non-African American GFR(CKD) 111.2 (60.0-200.0); Potassium 4.4 mmol/L (3.5-5.5); T4, Free (Free Thyroxine) 0.8 ng/dL (0.800-1.800); Total Bilirubin 0.2 mg/dL (0.30-1.20)
== END | disposition home or self-care (01) ==
LOC: LABWHC1 09:19
PROVIDERS: ATTEND Psychiatry & Neurology Psychiatry
DX: F41.1 Generalized anxiety disorder (principal)
CPT/HCPCS: 36415; 80053; 83036; 84439; 84443; 85025

== ENCOUNTER → 2022-05-31 | Outpatient (CLI) | payer OTHER ==
--- NOTE | 2022-05-31 08:50 | MM ---
Reason for Exam: Clinical finding. Patient History: 2010, Excisional Biopsy on the Right side. Risk Values: Sylvie 5 year model risk: 0.6%. NCI Lifetime model risk: 8.1%. Tissue Density: The breast tissue is heterogeneously dense. This may lower the sensitivity of mammography. Palpable areas left breast marked with palpable markers. Pain in both breast past past 2 years. Findings: Analyzed By CAD. No distinct focal mass or worrisome microcalcifications. Linear scar marker in the left breast upper outer aspect at site of prior excision. Overall Assessment: Incomplete: need additional imaging evaluation, BI-RAD 0 Management: Diagnostic Breast Ultrasound of the left breast. Targeted ultrasound left breast due to 3 palpable abnormalities. Electronically signed and approved by: Eddie Nicholas M.D.
--- NOTE | 2022-05-31 09:18 | USB ---
Reason for Exam: Clinical finding. Patient History: Menarche at age 12. First Full-Term at age 24. Currently using Hormonal Contraceptives, starting at age 20. 2010, Excisional Biopsy on the Right side. Maternal grandmother had breast cancer, age 70. Risk Values: Sylvie 5 year model risk: 0.9%. NCI Lifetime model risk: 10.9%. Technique: Method: Whole Breast Handheld. Findings: The whole breast of the left breast, the axilla of the left breast and the retroareolar of the left breast were scanned. A complete US of all four quadrants of the breast and retro-areolar region were reviewed. No solid or cystic masses are identified on images obtained. Overall Assessment: Negative, BI-RAD 1 Management: Screening Mammogram of both breasts in 1 year. Management palpable on clinical basis. Results were given to the patient verbally at the time of exam. Electronically signed and approved by: Eddie Nicholas M.D.
== END | disposition home or self-care (01) ==
LOC: RADMAMWWP 08:13
PROVIDERS: ATTEND Obstetrics & Gynecology
DX: N64.4 Mastodynia (principal); Z80.3 Family history of malignant neoplasm of breast
CPT/HCPCS: 77066

== ENCOUNTER 2023-06-16 08:08 | Emergency (ER) | payer OTHER ==
--- NOTE | 2023-06-16 08:41 | ED ---
General Adult HPI - General Chief complaint: Abdominal Pain Stated complaint: Abdominal Pain Time Seen by Provider: 06/16/23 08:18 Source: patient, RN notes reviewed, old records reviewed Mode of arrival: ambulatory Limitations: no limitations - History of Present Illness Initial comments: Patient is a 42-year-old female who presents emergency department complaining of abdominal pain. Presents emergency department complaining of multiple weeks of right upper quadrant abdominal pain with some epigastric discomfort as well. Seem to have been slightly worse yesterday with longer duration of pain. Endorses mild nausea with it. Denies any change in bowel habits. Has a history of appendectomy. Denies constipation. Does not believe she is . Denies any vaginal discharge, bleeding, dysuria, hematuria. Denies any lower abdominal pain. Denies any chest pain. No cardiac history. No alcohol abuse. Presents for further evaluation at this time. Pain is more manageable at this time but last night the pain was worse. Seems to be worse with certain foods especially things like tomato sauce or fried foods. - Related Data Home Medications Medication Instructions Recorded Confirmed DULoxetine HCL [Cymbalta] 60 mg PO DAILY 01/21/18 06/16/23 hydrOXYzine pamoate 25 mg PO BID PRN 06/23/20 06/16/23 Dexmethylphenidate HCl [Focalin] 10 mg PO BID PRN 06/16/23 06/16/23 Semaglutide [Wegovy] 2.4 mg SQ TU 06/16/23 06/16/23 Vitamin B Complex 1 cap PO DAILY 06/16/23 06/16/23 Vitamin D3 (Unknown Strength) 1 dose PO DAILY 06/16/23 06/16/23 Previous Rx's Medication Instructions Recorded Ondansetron Odt [Zofran Odt] 4 mg PO Q8HR PRN 3 Days #9 tab 06/16/23 Pantoprazole Sodium [Protonix] 20 mg PO DAILY 14 Days #14 tab 06/16/23 Allergies Allergy/AdvReac Type Severity Reaction Status Date / Time No Known Allergies Allergy Verified 06/16/23 09:44 Review of Systems ROS Statement: Those systems with pertinent positive or pertinent negative responses have been documented in the HPI. Review of Systems: CONST: Denies fever EYES: Denies blurry vision ENT: Denies nasal congestion C/V: Denies Chest pain RESP: Denies shortness of breath GI: Endorses abdominal pain : Denies dysuria SKIN: Denies rash. MSK: Denies joint pain. NEURO: Denies headache ROS Other: All systems not noted in ROS Statement are negative. Past Medical History Past Medical History: Pneumonia Additional Past Medical History / Comment(s): TB at age [age], migraines History of Any Multi-Drug Resistant Organisms: None Reported Past Surgical History: Appendectomy, Section Past Anesthesia/Blood Transfusion Reactions: No Reported Reaction Past Psychological History: Anxiety, Depression Smoking Status: Never smoker Past Alcohol Use History: None Reported Past Drug Use History: None Reported - Past Family History Mother Family Medical History: No Reported History Father Family Medical History: No Reported History Additional Family Medical History / Comment(s): migraines General Exam - General Exam Comments Initial Comments: General: Appears in no acute distress. HEAD: Normal with no signs of head trauma. EYES: PERRLA, EOMI, conjunctiva normal, no discharge. ENT: Hearing grossly intact, normal oropharynx. RESPIRATORY: Clear breath sounds bilaterally. No wheezes, rales, or rhonchi. C/V: Regular rate and rhythm. S1 and S2 auscultated, no edema, peripheral pulses 2+ and intact throughout ABD: Abdomen is soft, nondistended. Tender to palpation in the epigastric and right upper quadrant. No guarding. No rebound tenderness. No peritoneal signs. EXT: No obvious deformity. SKIN: No rashes or lesions observed on exposed skin. NEURO: Alert and oriented x 4. Limitations: no limitations Course Vital Signs 06/16/23 06/16/23 08:19 11:36 Temperature 98 F 97.9 F Pulse Rate 85 68 Respiratory 18 18 Rate Blood Pressure 117/78 102/65 O2 Sat by Pulse 99 98 Oximetry Medical Decision Making - Medical Decision Making Was pt. sent in by a medical professional or institution (, PA, RABIES INSPECTOR, urgent care, hospital, or residential...) When possible be specific @ -No Did you speak to anyone other than the patient for history (EMS, parent, family, police, friend...)? What history was obtained from this source @ -No Did you review nursing and triage notes (agree or disagree)? Why? @ -I reviewed and agree with nursing and triage notes Were old charts reviewed (outside hosp., previous admission, EMS record, old EKG, old radiological studies, urgent care reports/EKG's, residential records)? Report findings @ -Old charts reviewed Differential Diagnosis (chest pain, altered mental status, abdominal pain women, abdominal pain men, vaginal bleeding, weakness, fever, dyspnea, syncope, headache, dizziness, GI bleed, back pain, seizure, CVA, palpatations, mental health, musculoskeletal)? @ -Differential Abdominal Pain Women: Appendicitis, Cholecystitis, diverticulosis, ischemic bowel, pancreatitis, hepatitis, UTI, gastroenteritis, AAA, incarcerated hernia, bowel obstruction, constipation, inflammatory bowel, hepatitis, peptic ulcer disease, splenic infarction, perforated viscus, vulvitis, ovarian torsion, PID, kidney stone, placenta abruption, this is not meant to be an all-inclusive list EKG interpreted by me (3pts min.). @ -As above X-rays interpreted by me (1pt min.). @ -None done CT interpreted by me (1pt min.). @ -CT abdomen pelvis negative for any obvious acute findings. U/S interpreted by me (1pt. min.). @ -Gallbladder ultrasound reveals a hydropic gallbladder with cholelithiasis but no evidence of cholecystitis. CBD within acceptable limits. What testing was considered but not performed or refused? (CT, X-rays, U/S, labs)? Why? @ -None What meds were considered but not given or refused? Why? @ -None Did you discuss the management of the patient with other professionals (professionals i.e. , PA, RABIES INSPECTOR, lab, RT, psych nurse, director of social media marketing, materials coordinator, teacher, motor equipment commanding officer, case advocate)? Give summary @ -Discussed the case with Dr. Peralta of general surgery. States that patient is asymptomatic based on the gallbladder ultrasound findings he recommends follow-up with GI first for the liver enzyme findings. Then she can follow-up with him in the office for evaluation of the gallbladder. This was conveyed to the patient who was in agreement the plan. Was smoking cessation discussed for >3mins.? @ -No Was critical care preformed (if so, how long)? @ -No Were there social determinants of health that impacted care today? How? (Homelessness, low income, unemployed, alcoholism, drug addiction, transportation, low edu. Level, literacy, decrease access to med. care, senior care, rehab)? @ -No Was there de-escalation of care discussed even if they declined (Discuss DNR or withdrawal of care, Hospice)? DNR status @ -No What co-morbidities impacted this encounter? (DM, HTN, Smoking, COPD, CAD, Cancer, CVA, ARF, Chemo, Hep., AIDS, mental health diagnosis, sleep apnea, morbid obesity)? @ -None Was patient admitted / discharged? Hospital course, mention meds given and route, prescriptions, significant lab abnormalities, going to OR and other pertinent info. @ -Based on the patient's presentation and physical exam, presents for abdominal pain. Concern for gallbladder pathology at this time. Vital signs are within acceptable limits. We will obtain gallbladder ultrasound, screening EKG as well as abdominal labs. Patient was in agreement this plan. Patient be symptomatic treated with IV Toradol, Zofran, Protonix, fluids. She was in agreement this plan. EKG shows no signs of acute ischemia. Gallbladder ultrasound shows a hydropic gallbladder with cholelithiasis but no evidence of acute cholecystitis. Patient's laboratory studies remarkable for isolated elevated LFTs of 1100, 700. Bilirubin minimally elevated to 1.5. I reevaluate the patient. She is asymptomatic. I did recommend CT imaging to evaluate her liver further. She was in agreement this plan. CT showed no obvious acute intra-abdominal process. I discussed results with patient. She remains asymptomatic. I did discuss with general surgery on-call Dr. Peralta. He was in agreement that patient can be discharged home and he will evaluate the patient on outpatient basis for her gallbladder. Recommended she follow-up with GI Dr. Shin prior to that to account for the elevated LFTs. Patient was in agreement this plan. All of her symptoms are chronic for weeks. She will follow-up outpatient. I did offer admission however she declines at this time. I will provide the patient with a prescription for Protonix, Zofran. I instructed the patient to follow up with their PCP in the next 1-3 days. I provided contact information for follow up with Dr. Hanson, Dr. Peralta. I explained that the patient should return to the emergency department if they experience any worsening symptoms. Strict return precautions were discussed with the patient. The patient expressed understanding of these instructions. I answered all questions that the patient had. The patient was discharged home in good condition with their prescriptions and follow up information. Undiagnosed new problem with uncertain prognosis? @ -No Drug Therapy requiring intensive monitoring for toxicity (Heparin, Nitro, Insuli n, Cardizem)? @ -No Were any procedures done? @ -No Diagnosis/symptom? @ -Biliary colic, elevated LFTs Acute, or Chronic, or Acute on Chronic? @ -Acute Uncomplicated (without systemic symptoms) or Complicated (systemic symptoms)? @ -Complicated Side effects of treatment? @ -[none] Exacerbation, Progression, or Severe Exacerbation] @ -[no] Poses a threat to life or bodily function? @ -Unlikely - Lab Data Result diagrams: 06/16/23 08:39 06/16/23 08:39 Lab Results 06/16/23 06/16/23 06/16/23 Range/Units 08:39 08:39 08:45 WBC 9.7 (3.8-10.6) k/uL RBC 4.93 (3.80-5.40) m/uL Hgb 13.8 (11.4-16.0) gm/dL Hct 41.1 (34.0-46.0) % MCV 83.4 (80.0-100.0) fL MCH 28.0 (25.0-35.0) pg MCHC 33.5 (31.0-37.0) g/dL RDW 14.2 (11.5-15.5) % Plt Count 364 (150-450) k/uL MPV 8.2 Neutrophils % 75 % Lymphocytes % 15 % Monocytes % 7 % Eosinophils % 2 % Basophils % 1 % Neutrophils # 7.3 (1.3-7.7) k/uL Lymphocytes # 1.4 (1.0-4.8) k/uL Monocytes # 0.7 (0-1.0) k/uL Eosinophils # 0.2 (0-0.7) k/uL Basophils # 0.1 (0-0.2) k/uL PT 9.9 L (10.0-12.5) sec INR 0.9 (<1.2) APTT 22.9 (22.0-30.0) sec Sodium 139 (137-145) mmol/L Potassium 4.7 (3.5-5.1) mmol/L Chloride 106 (98-107) mmol/L Carbon Dioxide 27 (22-30) mmol/L Anion Gap 6 mmol/L BUN 15 (7-17) mg/dL Creatinine 0.53 (0.52-1.04) mg/dL Est GFR (CKD-EPI)AfAm >90 (>60 ml/min/1.73 sqM) Est GFR (CKD-EPI)NonAf >90 (>60 ml/min/1.73 sqM) Glucose 83 (74-99) mg/dL Calcium 9.2 (8.4-10.2) mg/dL Total Bilirubin 1.5 H (0.2-1.3) mg/dL AST 1180 H (14-36) U/L ALT 713 H (4-34) U/L Alkaline Phosphatase 96 (38-126) U/L Total Protein 7.3 (6.3-8.2) g/dL Albumin 4.1 (3.5-5.0) g/dL Amylase 39 (30-110) U/L Lipase 80 (23-300) U/L HCG, Qual Not Detected - EKG Data -: EKG Interpreted by Me EKG Comments: 12-lead Electrocardiogram Interpretation Note EKG was reviewed and interpreted by myself. 12-lead ECG performed at 0844 is interpreted by me as revealing normal sinus rhythm at a rate of 74 beats per minute. [place] is normal. [place] interval is 125 ms, QRS durations 105 ms, QTc is 422 ms.. There were no ST or T wave abnormalities to suggest myocardial ischemia or injury. R wave progression across the precordium was satisfactory. By my interpretation this EKG is non-diagnostic for acute ischemia. Disposition Clinical Impression: Biliary colic, Elevated LFTs Disposition: HOME SELF-CARE Condition: Good Instructions (If sedation given, give patient instructions): Biliary Colic (ED) Additional Instructions: liver enzymes are elevated. follow up with GI. Prescriptions: Pantoprazole Sodium [Protonix] 20 mg PO DAILY 14 Days #14 tab Ondansetron Odt [Zofran Odt] 4 mg PO Q8HR PRN 3 Days #9 tab PRN Reason: Nausea Is patient prescribed a controlled substance at d/c from ED?: No Referrals: Simin Lane MD [Primary Care Provider] - 1-2 days Gonzalo Peralta MD [Medical Doctor] - 1-2 days Delmy Hanson MD [STAFF PHYSICIAN] - 1-2 days Time of Disposition: 11:19
[2023-06-16] MEDS: ONDANSETRON 4 MG/2 ML VIAL IVP STA (08:47)
[2023-06-16] MEDS: KETOROLAC 15 MG/ML 1 ML VIAL IVP STA (08:49)
[2023-06-16 08:51] LABS: Basophils # (A) 0.1 k/uL (0-0.2); Basophils % (A) 1 %; Eosinophils # (A) 0.2 k/uL (0-0.7); Eosinophils % (A) 2 %; HCT 41.1 % (34.0-46.0); HGB 13.8 gm/dL (11.4-16.0); Lymphocytes # (A) 1.4 k/uL (1.0-4.8); Lymphocytes % (A) 15 %; MCHC 33.5 g/dL (31.0-37.0); MCV 83.4 fL (80.0-100.0); Mean Platelet Volume 8.2; Monocytes # (A) 0.7 k/uL (0-1.0); Monocytes % (A) 7 %; Neutrophils # (A) 7.3 k/uL (1.3-7.7); Neutrophils % (A) 75 %; Platelet Count 364 k/uL (150-450); RBC 4.93 m/uL (3.80-5.40); RDW 14.2 % (11.5-15.5); WBC 9.7 k/uL (3.8-10.6)
[2023-06-16] MEDS: SODIUM CHLORIDE 0.9% 1,000 ML IV STA (08:51)
[2023-06-16] MEDS: PANTOPRAZOLE 40 MG/10 ML VIAL IVP STA (08:51)
[2023-06-16 09:02] LABS: ALT 713 U/L (4-34); African American GFR (CKD) >90 (>60 ml/min/1.73 sqM); Albumin 4.1 g/dL (3.5-5.0); Amylase 39 U/L (30-110); Anion Gap 6 mmol/L; Blood Urea Nitrogen 15 mg/dL (7-17); Carbon Dioxide 27 mmol/L (22-30); Chloride 106 mmol/L (98-107); Glucose 83 mg/dL (74-99); HCG,Qualitative Serum Not Detected; Lipase 80 U/L (23-300); Non-African American GFR(CKD) >90 (>60 ml/min/1.73 sqM); Sodium 139 mmol/L (137-145); Total Bilirubin 1.5 mg/dL (0.2-1.3); Total Protein 7.3 g/dL (6.3-8.2)
[2023-06-16 09:12] LABS: INR 0.9 (<1.2); Partial Thromboplastin Time 22.9 sec (22.0-30.0); Prothrombin Time 9.9 sec (10.0-12.5)
[2023-06-16 09:26] LABS: AST 1180 U/L (14-36); Alkaline Phosphatase 96 U/L (38-126); Calcium 9.2 mg/dL (8.4-10.2); Potassium 4.7 mmol/L (3.5-5.1)
[2023-06-16] MEDS: MAG HYDROX/AL HYDROX/SIMETH 30 ML, HYOSCYAMINE ELIXIR 10 ML, LIDOCAINE VISCOUS 2% 10 ML PO STA (09:30)
[2023-06-16 09:38] VITALS: RESP 18
--- NOTE | 2023-06-16 09:50 | US ---
EXAMINATION TYPE: US gallbladder DATE OF EXAM: 06/16/2023 COMPARISON: NONE CLINICAL INDICATION: Female, 42 years old with history of ruq pain; Intermittent RUQ pain, vomiting f or 5-6 weeks, getting worse TECHNIQUE: Multiple sonographic images of the right upper quadrant are obtained. FINDINGS: EXAM MEASUREMENTS: Liver Length: 14.9 cm Gallbladder Wall: 0.3 cm CBD: 0.6 cm Right Kidney: 11.2 x 4.7 x 4.9 cm Pancreas: Tail obscured by overlying bowel gas Liver: wnl Gallbladder: stones. hydropic = 10.1cm Evidence for sonographic Joiner's sign: no CBD: upper limits of normal Right Kidney: dilated renal pelvis IMPRESSION: 1. Cholelithiasis with hydropic gallbladder. 2. Dilated right renal pelvis. 3. Common bile duct is at the upper limits of normal.
--- NOTE | 2023-06-16 10:44 | CT ---
EXAMINATION TYPE: CT abdomen pelvis w con DATE OF EXAM: 06/16/2023 COMPARISON: None INDICATION: RUQ, Right flank pain DLP: 677.9 mGycm, Automated exposure control for dose reduction was used. CONTRAST: 100 ml mL of Isovue 370. Study performed without Oral Contrast TECHNIQUE: Axial images were obtained from above the diaphragm to the pubic rami in the axial plane a t 5 mm thick sections. Reconstructed images are reviewed on the computer in the coronal plane. FINDINGS: Limited CT sections are obtained the lung bases. The lung bases are clear. CT ABDOMEN: Liver: Normal Spleen: Normal Pancreas: Normal Adrenal glands: The adrenal glands are normal. Gallbladder: Normal Kidneys: No masses are evident. No hydronephrosis is present. No cysts are present. Delayed images were obtained through the kidneys, which remain unremarkable. No renal stones are appreciated. Aorta: Vascular calcification is within the aorta. Inferior vena cava: Normal. CT PELVIS: Loops of bowel within the abdomen and pelvis are normal. Studies without oral contrast limiting b owel evaluation. Appendix: Not identified. No dilated tubular structure or inflammatory change is evident. Urinary bladder: Normal. Genitourinary structures: Uterus appears unremarkable. A 1.5 cm cyst on the left adnexa. Right adnexa appears normal. Osseous structures: No suspicious lytic or sclerotic lesions. IMPRESSION: 1. No suspicious abnormalities to account for right upper quadrant pain. 2. 1.5 cm left ovarian cyst
[2023-06-16 11:40] VITALS: BP 102/65; PULSE 68; TEMP 97.9
== END 2023-06-16 11:38 | disposition home or self-care (01) ==
LOC: EC 08:08
DX: K80.50 Calculus of bile duct without cholangitis or cholecystitis without obstruction (principal); R74.01 Elevation of levels of liver transaminase levels
CPT/HCPCS: 36415; 80053; 82150; 83690; 85025; 85610; 85730; 84703; 76705; 74177; 99285; 96374; 96375 ×3; 96361; J2405; J1885; C9113; Q9967

== ENCOUNTER → 2023-06-22 | Outpatient (CLI) | payer OTHER ==
--- NOTE | 2023-06-23 13:55 | US ---
EXAMINATION TYPE: US pelvis complete transvag DATE OF EXAM: 06/22/2023 COMPARISON: CT 06/16/2023 CLINICAL INDICATION: Female, 42 years old with history of N83.202 UNSPECIFIED OVARIAN CYST, LEFT SIDE ; States ov cyst left side seen on CT. A0. No pain or symptoms TECHNIQUE: Transvaginal (TV) and Transabdominal (TA) . Transabdominal sonographic images of the pel vis were acquired. Transvaginal sonographic images were medically necessary to better assess the fol lowing anatomy: Date of LMP: 06/16/2023 EXAM MEASUREMENTS: Uterus: 7.3 x 4.7 x 5.8 cm Endometrial Stripe: 0.5 cm Right Ovary: 2.3 x 1.7 x 2.9 cm Left Ovary: 3.1 x 1.8 x 3.2 cm Slightly limited due to overlying bowel 1. Uterus: Axial position wnl as best seen today 2. Endometrium: wnl 3. Right Ovary: Small 0.7 x 0.5 x 0.5cm anechoic area seen. Compatible with dominant follicle. 4. Left Ovary: There is a 1.1 x 1.1 x 1.2cm exophytic anechoic area with areas of possible internal debris seen. 5. Bilateral Adnexa: obscured by overlying bowel 6. Posterior cul-de-sac: wnl IMPRESSION: 1. There is a 1.2 cm left ovarian lesion which has some internal debris most likely related to a hemo rrhagic cyst. Other etiologies not excluded. Recommend follow-up in 6-8 weeks.
== END | disposition home or self-care (01) ==
LOC: RADUSWWP 08:11
PROVIDERS: ATTEND Family Medicine
DX: N83.202 Unspecified ovarian cyst, left side (principal)
CPT/HCPCS: 76830; 76856

== ENCOUNTER → 2023-06-23 | Outpatient (CLI) | payer OTHER ==
--- NOTE | 2023-06-23 07:55 | MM ---
Reason for Exam: Clinical finding. Last mammogram was performed 1 year(s) and 1 month(s) ago. Indicated Problems: Lump or thickening of the left side for 2 Week(s). Patient History: Menarche at age 12. First Full-Term at age 24. Patient has history of breast feeding. Currently using Hormonal Contraceptives, starting at age 20. 2010, Excisional Biopsy on the Right side. Maternal grandmother had breast cancer, age 70. Risk Values: Sylvie 5 year model risk: 0.9%. NCI Lifetime model risk: 10.8%. Prior Study Comparison: 05/31/2022 Bilateral MG diagnostic mammo w CAD ROSMERY, [facility]. Tissue Density: There are scattered areas of fibroglandular density. Findings: Analyzed By CAD. No evidence for mass or distortion. No mass at the site of clinical concern. Ultrasound recommended. No suspicious microcalcifications identified. Overall Assessment: Incomplete: need additional imaging evaluation, BI-RAD 0 Management: Diagnostic Breast Ultrasound of the left breast. . Results were given to the patient verbally at the time of exam. Patient should continue monthly self-breast exams. A clinical breast exam by your physician is recommended on an annual basis. This exam should not preclude additional follow-up of suspicious palpable abnormalities. Note on Sylvie scores and lifetime risk: 1. A Sylvie score greater than 3% is considered moderate risk. If this is the case, consider specialist referral to assess eligibility for a risk reducing agent. 2. If overall lifetime risk for the development of breast cancer is 20% or higher, the patient may qualify for future screening with alternating mammogram and breast MRI. Electronically signed and approved by: Fabricio Yoon M.D. Radiologis
--- NOTE | 2023-06-23 08:34 | USB ---
Reason for Exam: Clinical finding. Patient History: Menarche at age 12. First Full-Term at age 24. Patient has history of breast feeding. Currently using Hormonal Contraceptives, starting at age 20. 2010, Excisional Biopsy on the Right side. Maternal grandmother had breast cancer, age 70. Risk Values: Sylvie 5 year model risk: 0.9%. NCI Lifetime model risk: 10.8%. Technique: Method: Targeted. Prior Study Comparison: 05/31/2022 Bilateral MG diagnostic mammo w CAD [facility], [facility]. Findings: The medial section of the breast of the left breast, the axilla of the left breast and the retroareolar of the left breast were scanned. No solid or cystic masses are identified. Further management per clinical findings. Overall Assessment: Negative, BI-RAD 1 Management: Screening Mammogram of both breasts in 1 year. A clinical breast exam by your physician is recommended on an annual basis and results should be correlated with mammographic findings. This exam should not preclude additional follow-up of suspicious palpable abnormalities. Results were given to the patient verbally at the time of exam. Electronically signed and approved by: Fabricio Yoon M.D. Radiologis
== END | disposition home or self-care (01) ==
LOC: RADMAMWWP 07:22
PROVIDERS: ATTEND Obstetrics & Gynecology
DX: R92.323 Mammographic fibroglandular density, bilateral breasts (principal); Z80.3 Family history of malignant neoplasm of breast
CPT/HCPCS: 77066; 76642; G0279; 77062

== ENCOUNTER 2023-07-08 11:13 | Day surgery (SDC) | payer OTHER ==
[2023-07-07 09:26] VITALS: BMI 25.7
[~2023-07-08 11:13] MED LIST: LIDOCAINE 1% (10MG/ML) FOR IV START INTRADERMA PRN; MIDAZOLAM 2 MG/2 ML VIAL IV PRN
[2023-07-08] MEDS: LACTATED RINGERS 1,000 ML IV SCH (11:55)
[2023-07-08] MEDS: ACETAMINOPHEN TAB 500 MG TAB PO PRN (11:55)
[2023-07-08] MEDS: DEXAMETHASONE SOD PHOSPHATE 4 MG/ML 1 ML VIAL IV ONE (11:55)
[2023-07-08] MEDS: HEPARIN SODIUM,PORCINE 5,000 UNIT/ML 1 ML VIAL SQ PRN (11:55)
[2023-07-08] MEDS: ONDANSETRON 4 MG/2 ML VIAL IVP ONE (11:55)
[2023-07-08] MEDS: SCOPOLAMINE 1 MG/72 HR PATCH TRANSDERM ONE (12:07)
[2023-07-08 13:56] LABS: Basophils # (A) 0.1 k/uL (0-0.2); Basophils % (A) 1 %; Eosinophils # (A) 0.4 k/uL (0-0.7); Eosinophils % (A) 4 %; HCT 37.1 % (34.0-46.0); HGB 12.1 gm/dL (11.4-16.0); Lymphocytes # (A) 2.4 k/uL (1.0-4.8); Lymphocytes % (A) 26 %; MCH 27.4 pg (25.0-35.0); MCHC 32.6 g/dL (31.0-37.0); MCV 84.2 fL (80.0-100.0); Mean Platelet Volume 8.6; Monocytes # (A) 0.6 k/uL (0-1.0); Monocytes % (A) 7 %; Neutrophils # (A) 5.6 k/uL (1.3-7.7); Neutrophils % (A) 61 %; Platelet Count 328 k/uL (150-450); RBC 4.41 m/uL (3.80-5.40); RDW 14.3 % (11.5-15.5); WBC 9.2 k/uL (3.8-10.6)
[2023-07-08] MEDS ORDERED: GLYCOPYRROLATE 0.2 MG/ML 2 ML VIAL ONE (14:05)
[2023-07-08] MEDS ORDERED: HYDROmorphone (PF) 1 MG/ML ONE (14:05)
[2023-07-08] MEDS ORDERED: PROPOFOL 10 MG/ML 20 ML VIAL IV ONE (14:05)
[2023-07-08] MEDS ORDERED: LIDOCAINE 1% INJ 10MG/ML (20 ML MDV) ONE (14:05)
[2023-07-08] MEDS ORDERED: ROCURONIUM 10 MG/ML (5 ML VIAL) IV ONE (14:05)
[2023-07-08] MEDS ORDERED: LIDOCAINE 4% LTA KIT (4 ML) TOPICAL ONE (14:05)
[2023-07-08] MEDS ORDERED: fentaNYL (PF) 50 MCG/ML 2 ML AMP ONE (14:05)
[2023-07-08] MEDS ORDERED: KETOROLAC 15 MG/ML 1 ML VIAL ONE (14:05)
[2023-07-08] MEDS ORDERED: MIDAZOLAM 2 MG/2 ML VIAL ONE (14:05)
[2023-07-08] MEDS ORDERED: NEOSTIGMINE 1 MG/ML 10 ML VIAL ONE (14:05)
[2023-07-08] MEDS ORDERED: SUCCINYLCHOLINE CHLORIDE 200 MG/10 ML VIAL IV ONE (14:05)
[2023-07-08 14:12] LABS: ALT 36 U/L (4-34); AST 29 U/L (14-36); African American GFR (CKD) >90 (>60 ml/min/1.73 sqM); Albumin 3.4 g/dL (3.5-5.0); Alkaline Phosphatase 78 U/L (38-126); Anion Gap 3 mmol/L; Blood Urea Nitrogen 10 mg/dL (7-17); Calcium 8.8 mg/dL (8.4-10.2); Carbon Dioxide 27 mmol/L (22-30); Chloride 108 mmol/L (98-107); Glucose 84 mg/dL (74-99); Non-African American GFR(CKD) >90 (>60 ml/min/1.73 sqM); Sodium 138 mmol/L (137-145); Total Bilirubin 0.7 mg/dL (0.2-1.3); Total Protein 6.3 g/dL (6.3-8.2)
[2023-07-08] MEDS: BUPIVACAINE (PF) 0.25% 30 ML VIAL SQ ONE (14:35)
[2023-07-08] MEDS ORDERED: HYDROmorphone 0.5 MG/0.5 ML SYRINGE IVP PRN (15:08)
[2023-07-08] MEDS ORDERED: ACETAMINOPHEN TAB 325 MG TAB PO PRN (15:08)
[2023-07-08] MEDS ORDERED: NALOXONE 0.4 MG/ML 1 ML VIAL IV PRN (15:08)
[2023-07-08] MEDS ORDERED: ONDANSETRON 4 MG/2 ML VIAL IVP PRN (15:08)
--- NOTE | 2023-07-08 15:11 | P.OP ---
Date of Procedure: 07/08/23 Procedure(s) Performed: PREOPERATIVE DIAGNOSIS: Chronic cholecystitis POSTOPERATIVE DIAGNOSIS: Same PROCEDURE: Laparoscopic cholecystectomy SURGEON: Fabian EBL: Minimal see anesthesia record ANESTHESIA: Gen. COMPLICATIONS: None OPERATIVE PROCEDURE: The patient was brought and placed on the operating room table in the supine position. The patient was placed under general anesthesia at that time. The abdomen was prepped and draped in the usual sterile fashion. A small vertical infraumbilical incision was made. The fascia was grasped with the Afsaneh forceps. The fascia was retracted anteriorly. The Veress needle was advanced into the peritoneal cavity. The saline drop test was normal. Insufflation took place up to 15 mmHg. A 5 mm optical trocar was advanced and the peritoneal cavity. 2 additional 5 mm trochars were placed in the right upper quadrant under direct visualization. A 12 mm trocar was advanced into the epigastric incision site. The gallbladder was retracted superiorly and laterally. The peritoneum overlying the infundibulum was bluntly dissected. The patient's cystic duct was visualized. The junction between the cystic duct common and hepatic duct was identified. The critical view of safety was achieved after blunt dissection. The cystic duct was then divided after placement of 3 12 mm clips on the patient's side and one on the specimen side. The cystic artery was identified and clipped as well. A small vessel was seen along the gallbladder fossa and clipped as well. The gallbladder was then removed from the liver bed using electrocautery. The gallbladder was then removed from the epigastric trocar site with an Endo Catch bag. The gallbladder fossa was irrigated with saline. There was no evidence of any bleeding or biliary drainage seen. The fascia at the 12 millimeter site was closed using a Miguel-Julia 0 Vicryl stitch. The trochars were then removed. The skin at all 4 sites was closed using a 4-0 Monocryl stitch. Skin glue was utilized on the incision sites. At the end of this procedure the sponge and needle counts were correct. DISPOSITION: Stable to the recovery room
[2023-07-08] MEDS: HYDROmorphone 0.5 MG/0.5 ML SYRINGE IVP PRN (15:15)
[2023-07-08] MEDS: diphenhydrAMINE 50 MG/ML 1 ML VIAL IVP ONE (15:59)
[2023-07-08] MEDS: droPERidol 5 MG/2 ML VIAL IVP ONE (16:15)
[2023-07-08] MEDS: D5-0.45% NACL WITH KCL 20MEQ/L 1,000 ML IV SCH (18:30)
[2023-07-08] MEDS: HEPARIN SODIUM,PORCINE 5,000 UNIT/ML 1 ML VIAL SQ SCH (19:56)
[2023-07-08] MEDS: FAMOTIDINE 20 MG TAB PO SCH (19:57)
[2023-07-08] MEDS: DOCUSATE 100 MG CAP PO SCH (19:57)
[2023-07-08] MEDS: traMADol 50 MG TAB PO PRN (19:57)
[2023-07-08] MEDS: HYDROmorphone 1 MG/ML 1 ML SYRINGE IVP PRN (21:35)
[2023-07-09 09:04] VITALS: TEMP 98.5
[2023-07-09] MEDS: HYDROcodone/APAP 5-325MG 1 EACH TAB PO PRN (14:23)
--- NOTE | 2023-07-09 14:43 | P.PN ---
Subjective Progress Note Date: 07/09/23 Patient reports pre-existing epigastric right upper quadrant pain is now resolved. She reports appropriate soreness from her incisions. Otherwise tolerating diet. Abdomen: No peritonitis. Assessment: 1. Cholecystitis. Plan: 1. Clinically doing well. Stable for discharge. 2. Discharge instructions for incision management with antibacterial soap hydrogen peroxide reviewed. 3. Follow-up with Dr. Peralta outpatient Objective - Vital Signs Vital signs: Vital Signs Temp 98.5 F 07/09/23 07:15 Pulse 54 L 07/09/23 07:15 Resp 15 07/09/23 07:15 BP 103/60 07/09/23 07:15 Pulse Ox 97 07/09/23 07:15 FiO2 Intake & Output 07/08/23 07/09/23 07/09/23 18:59 06:59 18:59 Intake Total 950 Output Total 10 Balance 940 Weight 72 kg Intake: IV 950 Output: Estimated Blood Loss 10 Other: Voiding Method Toilet # Voids 1 1 - Labs CBC & Chem 7: 07/08/23 13:47 07/08/23 13:51
[2023-07-09 15:02] VITALS: BP 132/74; PULSE 66; RESP 17
== END 2023-07-09 15:45 | disposition home or self-care (01) ==
LOC: OR 11:13 → 6NMEDSUR 15:27 → OR 07-09 15:45
PROVIDERS: ATTEND Surgery
DX: K80.10 Calculus of gallbladder with chronic cholecystitis without obstruction (principal); E07.9 Disorder of thyroid, unspecified; F41.9 Anxiety disorder, unspecified; F32.A Depression, unspecified; Z79.890 Hormone replacement therapy; Z79.899 Other long term (current) drug therapy
CPT/HCPCS: 47562; 81025; 88304; 80053; 85025; J2250; J0330; J1200; J1644 ×2; J1100; J2710; J0690; J2405; J2001; J3010; J1170 ×3; J1885; J2704; J1790; J0665

== ENCOUNTER → 2023-11-24 | Outpatient (CLI) | payer OTHER ==
[2023-11-24 15:19] LABS: Basophils # (A) 0.05 X 10*3/uL (0.00-0.10); Basophils % (A) 0.7 %; Eosinophils # (A) 0.29 X 10*3/uL (0.04-0.35); Eosinophils % (A) 3.8 %; HCT 39.4 % (37.2-46.3); HGB 12.8 g/dL (12.0-15.0); Lymphocytes % (A) 28.7 %; MCH 27.1 pg (27.0-32.0); MCHC 32.5 g/dL (32.0-37.0); MCV 83.3 FL (80.0-97.0); Mean Platelet Volume 11.1 FL (9.5-12.2); Monocytes # (A) 0.57 X 10*3/uL (0.20-1.00); Monocytes % (A) 7.4 %; NRBC Per 100 WBC 0 X 10*3/uL (0.00-0.01); Neutrophils # (A) 4.53 X 10*3/uL (1.80-7.70); Neutrophils % (A) 59.1 %; Platelet Count 394 X 10*3/uL (140-440); RBC 4.73 X 10*6/uL (4.10-5.20); RDW 14.1 % (11.5-14.5); WBC 7.66 X 10*3/uL (4.50-10.00)
[2023-11-24 16:07] LABS: ALT 18 U/L (8-44); AST 18 U/L (13-35); Albumin 4.3 g/dL (3.8-4.9); Albumin/Globulin Ratio 1.65 Ratio (1.60-3.17); Alkaline Phosphatase 77 U/L (41-126); Blood Urea Nitrogen 10.5 mg/dL (9.0-27.0); Calcium 9.5 mg/dL (8.7-10.3); Carbon Dioxide 21.8 mmol/L (21.6-31.8); Chloride 106 mmol/L (96-109); Globulin 2.6 g/dL (1.6-3.3); Glucose 86 mg/dL (70-110); LDL Cholesterol,Calculated 117.7 mg/dL (0.0-131.0); Potassium 4.6 mmol/L (3.5-5.5); Sodium 138 mmol/L (135-145); T4, Free (Free Thyroxine) 1.02 ng/dL (0.80-1.80); Total Bilirubin 0.4 mg/dL (0.3-1.2); Total Protein 6.9 g/dL (6.2-8.2); VLDL Calculation 15.84 mg/dL (5.00-40.00)
== END | disposition home or self-care (01) ==
LOC: LABWHC1 07:48
PROVIDERS: ATTEND Nurse Practitioner
DX: E55.9 Vitamin D deficiency, unspecified (principal); R53.83 Other fatigue; R53.81 Other malaise
CPT/HCPCS: 36415; 80053; 80061; 82306; 83036; 84439; 84443; 85025

== ENCOUNTER → 2024-06-14 | Outpatient (CLI) | payer OTHER | END | disposition home or self-care (01) | LOC: LABWHC1 11:18 | PROVIDERS: ATTEND Obstetrics & Gynecology | DX: E56.8 Deficiency of other vitamins (principal) | CPT/HCPCS: 36415; 82306 ==

== ENCOUNTER → 2024-06-14 | Outpatient (CLI) | payer OTHER ==
--- NOTE | 2024-06-14 11:14 | USB ---
Reason for Exam: Clinical finding. Patient History: Menarche at age 12. First Full-Term at age 24. Premenopausal. Patient has history of breast feeding. Currently using Hormonal Contraceptives, starting at age 20. 2010, Excisional Biopsy on the Right side. Maternal grandmother had breast cancer, age 70. Risk Values: Sylvie 5 year model risk: 1.0%. NCI Lifetime model risk: 10.6%. Prior Study Comparison: 05/31/2022 Bilateral MG diagnostic mammo w CAD ROSMERY, [facility]. 06/23/2023 Bilateral US breast limited LT, [facility]. 06/23/2023 Bilateral MG 3D diag mammo w/cad ROSMERY, [facility]. Findings: The area of palpable concern of the left breast, the axilla of the left breast and the retroareolar of the left breast were scanned. A complete US of all four quadrants of the breast and retro-areolar region were reviewed. No solid or cystic masses are identified.. Overall Assessment: Negative, BI-RAD 1 Management: Screening Mammogram of both breasts in 1 year. A clinical breast exam by your physician is recommended on an annual basis and results should be correlated with mammographic findings. This exam should not preclude additional follow-up of suspicious palpable abnormalities. Results were given to the patient verbally at the time of exam. [facility], , 06/14/2024 11:09 AM. Electronically signed and approved by: Fabricio Yoon M.D. Radiologis
--- NOTE | 2024-06-14 11:30 | MM ---
Reason for Exam: Clinical finding. Last screening mammogram was performed 12 month(s) ago. Indicated Problems: Lump or thickening of the left side for 1 Month(s). Patient History: Menarche at age 12. First Full-Term at age 24. Premenopausal. Patient has history of breast feeding. Currently using Hormonal Contraceptives, starting at age 20. 2010, Excisional Biopsy on the Right side. Maternal grandmother had breast cancer, age 70. Risk Values: Sylvie 5 year model risk: 1.0%. NCI Lifetime model risk: 10.6%. Prior Study Comparison: 05/31/2022 Bilateral MG diagnostic mammo w CAD [facility], [facility]. 06/23/2023 Bilateral MG 3D diag mammo w/cad ROSMERY, [facility]. Tissue Density: The breasts are heterogeneously dense, which may obscure small masses. Findings: Analyzed By CAD. No evidence for mass or distortion. At the site of clinical concern left breast which is marked by a marker there is no mass seen. Ultrasound is recommended at this site as a precautionary measure. Overall Assessment: Incomplete: need additional imaging evaluation, BI-RAD 0 Management: Diagnostic Breast Ultrasound of the left breast. . Results were given to the patient verbally at the time of exam. Patient should continue monthly self-breast exams. A clinical breast exam by your physician is recommended on an annual basis. This exam should not preclude additional follow-up of suspicious palpable abnormalities. Note on Sylvie scores and lifetime risk: 1. A Sylvie score greater than 3% is considered moderate risk. If this is the case, consider specialist referral to assess eligibility for a risk reducing agent. 2. If overall lifetime risk for the development of breast cancer is 20% or higher, the patient may qualify for future screening with alternating mammogram and breast MRI. [facility], , 06/14/2024 11:20 AM. Electronically signed and approved by: Fabricio Yoon M.D. Radiologis
== END | disposition home or self-care (01) ==
LOC: RADMAMWWP 10:22
PROVIDERS: ATTEND Obstetrics & Gynecology
DX: N63.25 Unspecified lump in the left breast, overlapping quadrants (principal); R92.333 Mammographic heterogeneous density, bilateral breasts; Z80.3 Family history of malignant neoplasm of breast; Z92.0 Personal history of contraception
CPT/HCPCS: 77066; 76642; G0279; 77062

== ENCOUNTER → 2024-08-19 | Outpatient (CLI) | payer OTHER ==
--- NOTE | 2024-08-23 21:40 | MR ---
EXAMINATION TYPE: MR brain wo/w con DATE OF EXAM: 08/19/2024 8:23 AM COMPARISON: None. CLINICAL INDICATION: Female, 43 years old with history of R41.3 AMNESIA, Memory loss, 20 lbs weight l oss TECHNIQUE: Multiplanar, multiecho imaging on a 3.0 Mariya magnet is performed through the brain. Stud y is performed within 24 hours of arrival to the hospital.Multiplanar, multiecho imaging on a 3.0 Teresa la magnet is performed through the knee. IV Contrast: 6 mL Gadobutrol (None, if empty) FINDINGS: The craniovertebral junction is normal. The pituitary is normal. Diffusion-weighted imaging is performed. No abnormal hyperintensity is present to suggest an acute i ntracranial infarct or acute ischemic change. There are scattered punctate areas of hyperintensity on T2 and Inversion Recovery weighted sequences which are non-specific but can be related to microvascular ischemic changes. Ventricles and sulci are appropriate for the patient age. No abnormal enhancement is evident IMPRESSION: 1. Scattered bilateral focal areas of hyperintensity within the deep point likely on the basis of chr onic white matter ischemic change. [facility], , 08/23/2024 9:38 PM
== END | disposition home or self-care (01) ==
LOC: RADMRIMAIN 07:32
PROVIDERS: ATTEND Family Medicine
DX: G93.89 Other specified disorders of brain (principal); R41.3 Other amnesia; R63.4 Abnormal weight loss
CPT/HCPCS: 70553; A9585

== ENCOUNTER → 2024-09-11 | Outpatient (CLI) | payer OTHER ==
--- NOTE | 2024-09-13 11:17 | BMR ---
EXAM DATE: 09/11/2024 EXAM DESCRIPTION: MRI-Breast Bilat (W/WO Contrast) INDICATION: Mastodynia. Lumpiness of both breasts. COMPARISON: Comparison was made to prior relevant imaging available in PACS TECHNIQUE: Multiplanar multisequence breast MRI was performed prior to and after administration of 6 mL of gadobutrol intravenously. Post processing was performed utilizing a [employer] workstation. FINDINGS: There is marked symmetric background parenchymal enhancement in breasts that are composed of scattered fibroglandular tissue.. RIGHT BREAST: Review of the dynamic contrast enhanced series shows the 8 mm nodular non mass enhancement at 6 o'clock position posterior depth of the breast (series 505, image 256 and series 601, image 160). Otherwise, no suspicious enhancement patterns or other abnormalities. The T2 weighted series show no abnormality. LEFT BREAST: Review of the dynamic contrast enhanced series shows no rapidly enhancing masses, suspicious enhancement pattern or other abnormalities. The T2 weighted series show no abnormality. LYMPH NODES: No axillary or internal mammary lymphadenopathy. IMPRESSION: 1. Right breast: A 8 mm nodular non mass enhancement at 6 o'clock position posterior depth of the breast. Recommend further evaluation with diagnostic right breast mammogram and targeted ultrasound and further management based on clinical findings. If no definitive correlate, recommend follow-up with MRI in 6 months. 2. Left breast: No MR evidence of malignancy. Recommend MRI screening in 1 year. OVERALL ASSESSMENT- BI-RADS 0 ANNUAL SCREENING BREAST MRI IN ADDITION TO MAMMOGRAPHY IS RECOMMENDED IN PATIENTS WITH LIFETIME RISK OF BREAST CANCER >20% MTDD
== END | disposition home or self-care (01) ==
LOC: RADMRIMAIN 07:26
PROVIDERS: ATTEND Surgery
DX: R91.8 Other nonspecific abnormal finding of lung field (principal); N64.4 Mastodynia
CPT/HCPCS: C8908; A9585; 77049

== ENCOUNTER → 2024-09-21 | Outpatient (CLI) | payer OTHER ==
[2024-09-21 09:31] VITALS: BP 109/71; PULSE 76; RESP 14; TEMP 98.6
--- NOTE | 2024-09-21 10:08 | P.PN ---
Subjective Progress Note Date: 09/21/24 Principal diagnosis: Abnormal right breast MRI Mastodynia Requesting physician: Jose Machuca History of present illness: 08-09-24 Monserrat is a 43-year-old female seen in consultation for Dr. Lane regarding breast pain. She had a bilateral mammogram as well as a left breast ultrasound performed on 06 14 24. The results were felt to be benign BI-RADS 1. She had a 20 pound weight loss and feels multiple lumps in her breast two lumps in the lateral aspect of the left breast are painful. One of the lumps in her left breast has been there for over a year. They do not come and go. They are more tender right before her menstrual cycle. She is not complaining of any trauma or infection in her breast. She has not had any recent medication changes. She had an open biopsy of the right breast in the remote past which was benign. She has a CT scan ordered of chest abdomen and pelvis related to her 20 pound weight loss. This is scheduled for August 2009-21-24 She had a breast MRI on 09-11-24 which showed no lesions of concern in the left breast but an 8 mm lesion in the right breast. recommended right diagnostic mammogram and ultrasound. If nothing of concern noted repeat MRI in 6 months. The MRI was personally reviewed and discussed with Dr. Nicholas from radiology. She is not complaining of any new lumps masses or nodules of concern. She has noted that the breast tenderness has improved since she started primrose oil. Sylvie risk 5-year: 1% NCI lifetime risk 10.6% Caffeine: occasional nicotine: none chocolate: occasional BCP: used for about 4 years stopped 2 years ago; used for premenstrual dysphoric disorder; it helped but didnot keep using them hormones: none Family History: maternal grandmother: breast cancer paternal grandfather: brain cancer Hormonal history: Menarche: 12 age at first : 24, breast fed:pumped periods regular Surgical history: gallbladder appy C-sections Medical History: Tuberculosis Social history: Nicotine: Negative Alcohol: Negative Drugs: Negative Review of Systems - Constitutional Reports weight loss, Denies fever - EENT Eyes: bilateral as per HPI Ears: bilateral: decreased hearing Ears, nose, mouth and throat: Denies dysphagia - Breasts bilateral: as per HPI - Cardiovascular Denies chest pain, Denies shortness of breath - Respiratory Denies cough - Gastrointestinal Reports as per HPI, Reports constipation - Genitourinary Genitourinary: Denies dysuria, Denies hematuria Menstruation: Reports period normal - Musculoskeletal Reports as per HPI - Integumentary Denies rash, Denies unusual bruising - Neurological Neurologic Comment(s): lightheadedness Denies headaches, Denies syncope - Psychiatric Reports as per HPI - Endocrine Reports as per HPI, Reports weight change - Hematologic/Lymphatic Denies easy bleeding, Denies easy bruising - Allergic/Immunologic Reports as per HPI Past Medical History Past Medical History: GERD/Reflux, Pneumonia, Thyroid Disorder Additional Past Medical History / Comment(s): TB at age [age], migraines, hypothyriodism. History of Any Multi-Drug Resistant Organisms: None Reported Past Surgical History: Appendectomy, Section Past Anesthesia/Blood Transfusion Reactions: Motion Sickness, Postoperative Nausea & Vomiting (PONV) Additional Past Anesthesia/Blood Transfusion Reaction / Comm: Hard to wake up. Smoking Status: Never smoker - Past Family History Mother Family Medical History: No Reported History Father Family Medical History: No Reported History Additional Family Medical History / Comment(s): Migraines. Medications and Allergies Home Medications Medication Instructions Recorded Confirmed Type DULoxetine HCL [Cymbalta] 60 mg PO QAM 01/21/18 07/08/23 History Semaglutide [Wegovy] 2.4 mg SQ TU 06/16/23 07/07/23 History oxyCODONE HCL [OxyIR] 5 mg PO Q6H PRN 3 Days #6 tab 07/08/23 Rx Allergies Allergy/AdvReac Type Severity Reaction Status Date / Time No Known Allergies Allergy Verified 07/08/23 11:54 Objective - Vital Signs Vital signs: Vital Signs Temp 98.6 F 09/21/24 09:28 Pulse 76 09/21/24 09:28 Resp 14 09/21/24 09:28 BP 109/71 09/21/24 09:28 Pulse Ox 100 09/21/24 09:28 FiO2 Intake & Output 09/20/24 09/21/24 09/21/24 18:59 06:59 18:59 Weight 61.235 kg - Constitutional General appearance: Present: cooperative - EENT Eyes: Present: EOMI ENT: Present: hearing grossly normal - Neck Neck: Present: normal ROM - Respiratory Respiratory: bilateral: CTA - Cardiovascular Rhythm: regular Heart sounds: normal: S1, S2 - Integumentary Integumentary: Present: normal turgor - Musculoskeletal Musculoskeletal: Present: gait normal - Psychiatric Psychiatric: Present: A&O x's 3, appropriate affect, intact judgment & insight - Additional findings Additional findings: Breast examination: Bra: 36B Inspection: Right breast larger than left breast, bilateral grade 2 ptosis Palpation: Right breast: Multi positional exam fibrocystic changes with no discrete dominant masses or nodules which would warrant interventional biopsy Right axilla: No adenopathy of concern Left breast: Multi positional exam fibrocystic changes, in the 7 o'clock position there is some nodularity believed to be fibrocystic in nature and in the 2 o'clock position there is some nodularity again believed to be fibrocystic in nature no discrete masses which would warrant interventional biopsy at this time Left axilla: No adenopathy of concern Assessment and Plan Assessment: Impression: Fibrocystic breast changes Nothing on physical exam or radiographically to warrant interventional biopsy at this time Intermittent mastodynia MRI abnormal 8 mm nodule at 6:OClock; personally reviewed and interpreted with Dr. Nicholas from radiology this was compared with her bilateral mammogram from June 2024 Plan: [place] oil Breast MRI done on 09-11-24; 8 mm area of nodularity right breast posterior 6 o'clock position dedicated right breast mammogram and ultrasound follow-up after this is done if there is nothing on mammogram or ultrasound of concern then would repeat MRI in 6 months Follow-up in 6 months for physical exam Follow-up sooner any questions or concerns CC:Simin Lane
== END ==
LOC: WWCWWP 08:56
PROVIDERS: ATTEND Surgery
DX: N60.19 Diffuse cystic mastopathy of unspecified breast (principal); N64.4 Mastodynia; N63.20 Unspecified lump in the left breast, unspecified quadrant